=== PATIENT | female | born 1935 | race Caucasian/White ===

== ENCOUNTER 2019-01-25 09:55 | Outpatient (CLI) | payer MEDICARE ==
--- NOTE | 2019-01-25 10:14 | RAD ---
XR Chest Pa Lat @ POB History: Dyspnea Comparison: Chest radiograph 2012 Findings: Lungs are clear. No pneumothorax. No effusion. Severe degenerative disease left glenohumera l joint. No acute osseous abnormality. Impression: No acute intrathoracic abnormality.
== END 2019-01-25 09:56 | disposition home or self-care (01) ==
LOC: RAD 09:55
PROVIDERS: ATTEND Internal Medicine Pulmonary Disease
DX: R06.00 Dyspnea, unspecified (principal)
CPT/HCPCS: 71046

== ENCOUNTER 2019-04-12 08:48 | Outpatient (CLI) | payer MEDICARE ==
--- NOTE | 2019-04-12 11:53 | MRI ---
MRI LUMBAR SPINE WITHOUT CONTRAST: Date: 04/12/19 INDICATION: Spinal stenosis. Low back pain. FINDINGS: Lumbar vertebra maintain height. Degenerative disc changes are seen at all levels. No evidence of sanna tebral body edema. At T12-L1, mild diffuse disc bulge flattens the anterior thecal sac. No significant central canal or foraminal stenosis. At L1-2, slight posterolisthesis with posterior disc bulge flattening the thecal sac. Mild facet hype rtrophy. No significant central canal or foraminal stenosis. At L2-3, slight posterolisthesis. Diffuse disc bulge. Facet hypertrophy. There is also posterior epid ural fat which compresses the thecal sac. These changes result in mild to moderate central canal sten osis. Bilateral foraminal stenosis secondary to disc bulge and facet hypertrophy. Foraminal stenosis is slightly more pronounced on the right due to asymmetric disc. At L3-4, mild diffuse disc bulge. Moderate facet hypertrophy. Mild central canal stenosis. At L4-5, mild anterolisthesis. Diffuse disc bulge. Prominent facet hypertrophy. Moderate central rosa isela l stenosis. Left foraminal stenosis secondary to asymmetric disc and facet hypertrophy. At L5-S1, diffuse disc bulge. Prompt facet hypertrophy. No significant central canal stenosis; howeve r, bilateral foraminal stenosis is present due to disc and facet hypertrophy encroaching into both fo ramina. There is a disc osteophyte complex projecting laterally to the left. IMPRESSION: Degenerative disc changes at all levels of the lumbar spine as described above. Central canal stenosi s most pronounced at L2-3 and L4-5 as described above. POS: OFF
== END 2019-04-12 08:49 | disposition home or self-care (01) ==
LOC: SCSMRI 08:48
PROVIDERS: ATTEND Orthopaedic Surgery
DX: M48.061 Spinal stenosis, lumbar region without neurogenic claudication (principal); M48.07 Spinal stenosis, lumbosacral region; M51.36 Other intervertebral disc degeneration, lumbar region
CPT/HCPCS: 72148

== ENCOUNTER 2020-01-10 09:40 | Outpatient (CLI) | payer MEDICARE, OTHER ==
[2020-01-10 14:18] LABS: INR-International Normal Ratio 1.1; PTT 29.7 sec (22.9-36.1); Prothrombin Time 14.3 sec (12.0-14.7)
[2020-01-10 16:17] LABS: Hemoglobin 10.8 g/dL (12.0-16.0); Mean Corpuscular HGB CONC 33.7 g/dL (32.0-36.0); Mean Corpuscular Volume 91.9 fL (78.0-98.0); Mean Platelet Volume 7.3 fL (7.4-10.4); Platelet Count 309 thou/uL (130-400); RBC Distribution Width 11.8 % (11.5-14.5); Red Blood Cell (RBC) Count 3.48 mill/uL (4.20-5.40); White Blood Cell (WBC) Count 6.6 thou/uL (4.8-10.8)
[2020-01-11 10:31] LABS: Anion Gap 15 mmol/L (10-20); BUN (Urea Nitrogen) 19 mg/dL (9.8-20.1); Calc. Creatinine Clearance 0 mL/min (70-130); Calcium 9.6 mg/dL (7.8-10.44); Carbon Dioxide 22 mmol/L (23-31); Chloride 98 mmol/L (98-107); Estimated GFR-MDRD 61; Glucose 98 mg/dL (83-110); Potassium 4.6 mmol/L (3.5-5.1); Sodium 130 mmol/L (136-145)
[2020-01-11 12:44] LABS: SARS-CoV-2 MS2 Positive; SARS-CoV-2 N Gene Negative; SARS-CoV-2 S Gene Negative; SARS-CoV-2 orf1ab Negative
== END 2020-01-10 09:41 | disposition home or self-care (01) ==
LOC: LABBT 09:40
PROVIDERS: ATTEND Surgery
DX: Z01.818 Encounter for other preprocedural examination (principal); Z11.59 Encounter for screening for other viral diseases; M54.16 Radiculopathy, lumbar region; M48.061 Spinal stenosis, lumbar region without neurogenic claudication
CPT/HCPCS: 80048; 85027; 85610; 85730; 93005; U0003; 87635; 93010

== ENCOUNTER 2020-01-12 05:48 | Day surgery (SDC) | payer MEDICARE ==
[2020-01-09 10:27] VITALS: BMI 27.0
[2020-01-12] MEDS ORDERED: Thrombin 5000 UNITS/5 ML VIAL ONE (06:32)
[2020-01-12] MEDS ORDERED: Rocuronium Bromide 50 MG/5 ML VIAL ONE (07:26)
[2020-01-12] MEDS ORDERED: Fentanyl 100 MCG/2 ML VIAL ONE ×4 (07:26→11:38)
[2020-01-12] MEDS ORDERED: PROPOFOL 20 ML ONE (07:26)
[2020-01-12] MEDS ORDERED: Lidocaine 1% PF 5 ML VIAL ONE ×2 (07:26→15:37)
[2020-01-12] MEDS ORDERED: SUGAMMADEX SODIUM 500 MG/5 ML VIAL ONE (10:36)
[2020-01-12] MEDS ORDERED: SUGAMMADEX SODIUM 200 MG/2 ML VIAL ONE (10:36)
[2020-01-12] MEDS ORDERED: HYDROmorphone 2 MG/ML VIAL SLOW IVP PRN (10:39)
[2020-01-12] MEDS ORDERED: Promethazine HCl 25 MG/ML VIAL SLOW IVP PRN (10:39)
[2020-01-12] MEDS ORDERED: PACU-Morphine 4MG/ML VIAL SLOW IVP PRN (10:39)
[2020-01-12] MEDS ORDERED: Morphine Sulfate 2 MG/ML SYRINGE SLOW IVP PRN (10:39)
[2020-01-12] MEDS ORDERED: Ondansetron HCl/PF 4 MG/2 ML Vial IVP PRN (10:39)
[2020-01-12] MEDS ORDERED: Promethazine HCl 25 MG/ML VIAL IM PRN (10:39)
[2020-01-12] MEDS ORDERED: Ondansetron PF 4 MG/2 ML Vial IVP PRN (11:01)
[2020-01-12] MEDS ORDERED: Mag-Al 1200 mg/1200 mg/30 ML UDCUP PO PRN (11:01)
[2020-01-12] MEDS ORDERED: Morphine 2 MG/ML SYRINGE SLOW IVP PRN (11:01)
[2020-01-12] MEDS ORDERED: Fleet Enema 133 ML BOT PR PRN (11:01)
[2020-01-12] MEDS ORDERED: Bisacodyl 10 MG SUPP PR PRN (11:01)
[2020-01-12] MEDS ORDERED: Albuterol Sulfate 1.25 MG/3 ML NEB NEB PRN (11:03)
--- NOTE | 2020-01-12 12:58 | OP ---
DATE OF PROCEDURE: 01/12/2020 LOCATION: OR 12. COACH DRIVER: Dee Ludwig PA-C PREPROCEDURE DIAGNOSIS: Multilevel lumbar stenosis with low back and leg pain. POSTPROCEDURE DIAGNOSIS: Multilevel lumbar stenosis with low back and leg pain. PROCEDURES PERFORMED: L1, L2, L3, L4, L5, and S1 laminectomies, partial facetectomies, and foraminotomies. DESCRIPTION OF PROCEDURE: After informed consent was obtained from the patient, the patient was brought to the OR. Proper patient, pause, and identification were carried out. She was placed under excellent general endotracheal anesthesia and positioned prone on the OR table. A linear fuad was drawn over the L1 through S1 segments. This region was sterilely cleansed, prepared and draped. Proper patient, pause, and identification were carried out. The wound was then opened with a combination of sharp, monopolar, and blunt dissection. The L1, L2, L3, L4, L5, and S1 dorsal spines and lamina were exposed. Localization film confirmed our area of interest. We then performed L1, L2, L3, L4, L5, and S1 laminectomies, partial facetectomies, and foraminotomies with excellent decompression of common dural tube and nerve roots. Copious irrigation occurred throughout as did maximizing hemostasis. The wound was then closed in anatomic layers following sprinkling of vancomycin powder. The patient emerged from anesthesia. Job ID: [id number]
[2020-01-12] MEDS ORDERED: Ondansetron PF 4 MG/2 ML Vial ONE (15:37)
[2020-01-12] MEDS ORDERED: Ketorolac Tromethamine 30 MG/ML VIAL ONE (15:37)
[2020-01-12] MEDS ORDERED: PROPOFOL 200 MG/20 ML VIAL ONE (15:37)
[2020-01-12] MEDS ORDERED: Vecuronium 10 MG VIAL ONE (15:37)
[2020-01-12] MEDS ORDERED: Esmolol 100 MG/10 ML VIAL ONE (15:37)
[2020-01-12] MEDS ORDERED: EPHEDRINE 25 MG/5 ML SYRINGE ONE (15:37)
[2020-01-12] MEDS ORDERED: Rocuronium Bromide 10 MG/ML (10ML VIAL) ONE (15:37)
[2020-01-12] MEDS: hydrALAZINE 25 MG TAB PO SCH ×2 (16:24→21:36)
[2020-01-12] MEDS: CEFAZOLIN 2 GM in Premix Bag 1 BAG IVPB SCH ×2 (16:25→23:34)
[2020-01-12] MEDS: HYDROcodone/Acetaminophen 7.5/325 mg Tablet PO PRN ×2 (16:25→23:35)
[2020-01-12] MEDS: Sodium Chloride 0.9% 1,000 ML IV SCH (16:27)
--- NOTE | 2020-01-12 18:06 | EKG ---
Test Reason : PREOP Blood Pressure : / mmHG Vent. Rate : 066 BPM Atrial Rate : 078 BPM P-R Int : 000 ms QRS Dur : 100 ms QT Int : 414 ms P-R-T Axes : 000 041 009 degrees QTc Int : 434 ms Atrial fibrillation Abnormal ECG When compared with ECG of 29-JUL-2011 14:08, Atrial fibrillation has replaced Sinus rhythm Confirmed by DR. Sierra MATHUR ([id number]) on 01/12/2020 6:05:38 PM Referred By: KELSEY DICKSON Confirmed By:DR. Sierra MATHUR
[2020-01-12] MEDS: Gabapentin 300 MG CAP PO SCH (21:34)
[2020-01-12] MEDS: Nebivolol HCl 5 MG TAB PO SCH (21:35)
[2020-01-12] MEDS: Amlodipine 5 MG TAB PO SCH (21:35)
[2020-01-12] MEDS: Calcium Carbonate 600 MG + Vit D TAB PO SCH (21:35)
[2020-01-12] MEDS: Montelukast Sodium 10 mg Tablet PO SCH (21:36)
[2020-01-12] MEDS: cycloSPORINE 0.05% Ophthalmic Droperette EA EYE SCH (23:34)
[2020-01-13] MEDS: Sodium Chloride 0.9% 1,000 ML IV SCH ×2 (02:31→18:54)
[2020-01-13 05:49] LABS: Anion Gap 8 mmol/L (10-20); BUN (Urea Nitrogen) 16 mg/dL (9.8-20.1); Calc. Creatinine Clearance 52 mL/min (70-130); Calcium 8.6 mg/dL (7.8-10.44); Carbon Dioxide 28 mmol/L (23-31); Chloride 95 mmol/L (98-107); Estimated GFR-MDRD 57; Glucose 111 mg/dL (83-110); Potassium 3.9 mmol/L (3.5-5.1); Sodium 127 mmol/L (136-145)
[2020-01-13] MEDS: Gabapentin 300 MG CAP PO SCH ×2 (08:55→21:04)
[2020-01-13] MEDS: HYDROcodone/Acetaminophen 7.5/325 mg Tablet PO PRN (08:55)
[2020-01-13] MEDS: Multivitamin W/ Minerals 1 TAB PO SCH (08:55)
[2020-01-13] MEDS: Amlodipine 5 MG TAB PO SCH ×2 (12:29→21:58)
[2020-01-13] MEDS: Hydrochlorothiazide 25 MG TAB PO SCH (12:30)
[2020-01-13] MEDS: Losartan 25 MG TAB PO SCH (12:30)
[2020-01-13] MEDS: Nebivolol HCl 5 MG TAB PO SCH ×2 (12:30→21:59)
[2020-01-13] MEDS: hydrALAZINE 25 MG TAB PO SCH ×3 (12:30→21:58)
--- NOTE | 2020-01-13 13:05 | PRG ---
DATE OF SERVICE: 01/13/2020 Ms. Jaime is postoperative day 1 from L1 to S1 laminectomy. She is doing well with resolution in her leg pain. She looks frankly marvelous this morning with excellent strength in her lower extremities. We will remove the Garcia catheter and should be fine for inpatient rehab as early as today. Job ID: [id number]
[2020-01-13] MEDS: cycloSPORINE 0.05% Ophthalmic Droperette EA EYE SCH ×2 (16:17→21:54)
[2020-01-13] MEDS: Acetaminophen 325 MG TAB PO PRN (18:37)
[2020-01-13] MEDS: Montelukast Sodium 10 mg Tablet PO SCH (21:04)
[2020-01-13] MEDS: Calcium Carbonate 600 MG + Vit D TAB PO SCH (21:04)
[2020-01-14] MEDS: Sodium Chloride 0.9% 1,000 ML IV SCH ×2 (05:46→17:34)
[2020-01-14] MEDS: Amlodipine 5 MG TAB PO SCH ×2 (08:54→20:13)
[2020-01-14] MEDS: Hydrochlorothiazide 25 MG TAB PO SCH (08:54)
[2020-01-14] MEDS: hydrALAZINE 25 MG TAB PO SCH ×3 (08:54→20:14)
[2020-01-14] MEDS: Nebivolol HCl 5 MG TAB PO SCH ×2 (08:55→20:15)
[2020-01-14] MEDS: Losartan 25 MG TAB PO SCH (08:55)
[2020-01-14] MEDS: Acetaminophen/Codeine 30-300mg Tablet PO PRN ×3 (08:59→17:50)
[2020-01-14] MEDS: Gabapentin 300 MG CAP PO SCH ×2 (09:00→20:14)
[2020-01-14] MEDS: Multivitamin W/ Minerals 1 TAB PO SCH (09:00)
[2020-01-14] MEDS: cycloSPORINE 0.05% Ophthalmic Droperette EA EYE SCH ×2 (09:00→20:15)
[2020-01-14] MEDS ORDERED: Sodium Chloride 0.9% 10 ML ONE (09:06)
--- NOTE | 2020-01-14 11:07 | PRG ---
DATE OF SERVICE: 01/14/2020 Ms. Jaime has [employer] insurance, which is unfortunate because they are extremely difficult to work with when trying to get inpatient rehab for needed. This is per my opinion and our Social Work opinion. Nevertheless, I have let the patient know that we will continue to try and work in this regard as its my opinion that she would benefit from it. If she continues to do well [employer] does not help us, we will likely have to plan for home health. Job ID: [id number]
[2020-01-14] MEDS: Calcium Carbonate 600 MG + Vit D TAB PO SCH (20:14)
[2020-01-14] MEDS: Montelukast Sodium 10 mg Tablet PO SCH (20:15)
[2020-01-14] MEDS: Docusate 100 MG CAP PO PRN (22:15)
[2020-01-15] MEDS: Sodium Chloride 0.9% 1,000 ML IV SCH ×2 (06:28→20:15)
[2020-01-15] MEDS: Acetaminophen/Codeine 30-300mg Tablet PO PRN ×5 (06:33→22:29)
[2020-01-15] MEDS: hydrALAZINE 25 MG TAB PO SCH ×3 (08:49→21:25)
[2020-01-15] MEDS: Nebivolol HCl 5 MG TAB PO SCH ×2 (08:49→21:26)
[2020-01-15] MEDS: Hydrochlorothiazide 25 MG TAB PO SCH (08:49)
[2020-01-15] MEDS: Amlodipine 5 MG TAB PO SCH ×2 (08:49→21:24)
[2020-01-15] MEDS: Losartan 25 MG TAB PO SCH (08:49)
[2020-01-15] MEDS: Multivitamin W/ Minerals 1 TAB PO SCH (08:50)
[2020-01-15] MEDS: Gabapentin 300 MG CAP PO SCH ×2 (08:50→21:25)
[2020-01-15] MEDS: cycloSPORINE 0.05% Ophthalmic Droperette EA EYE SCH ×2 (08:51→21:26)
[2020-01-15] MEDS: Milk Of Magnesia 30 ML UDCUP PO PRN ×2 (08:54→14:12)
[2020-01-15] MEDS: Calcium Carbonate 600 MG + Vit D TAB PO SCH (21:25)
[2020-01-15] MEDS: Montelukast Sodium 10 mg Tablet PO SCH (21:26)
[2020-01-15] MEDS: Docusate 100 MG CAP PO PRN (21:35)
[2020-01-16] MEDS: Acetaminophen/Codeine 30-300mg Tablet PO PRN ×4 (03:52→21:04)
[2020-01-16] MEDS: Hydrochlorothiazide 25 MG TAB PO SCH (09:57)
[2020-01-16] MEDS: Gabapentin 300 MG CAP PO SCH ×2 (09:57→21:03)
[2020-01-16] MEDS: Amlodipine 5 MG TAB PO SCH ×2 (09:57→20:56)
[2020-01-16] MEDS: Multivitamin W/ Minerals 1 TAB PO SCH (09:57)
[2020-01-16] MEDS: Losartan 25 MG TAB PO SCH (09:58)
[2020-01-16] MEDS: Nebivolol HCl 5 MG TAB PO SCH ×2 (09:59→22:53)
[2020-01-16] MEDS: Sodium Chloride 0.9% 1,000 ML IV SCH (10:00)
[2020-01-16] MEDS: cycloSPORINE 0.05% Ophthalmic Droperette EA EYE SCH ×2 (10:28→21:03)
[2020-01-16] MEDS: hydrALAZINE 25 MG TAB PO SCH ×3 (10:28→21:02)
[2020-01-16] MEDS: Montelukast Sodium 10 mg Tablet PO SCH (21:01)
[2020-01-16] MEDS: Calcium Carbonate 600 MG + Vit D TAB PO SCH (21:01)
[2020-01-17] MEDS: Sodium Chloride 0.9% 1,000 ML IV SCH ×2 (01:35→11:06)
[2020-01-17] MEDS: Nebivolol HCl 5 MG TAB PO SCH ×2 (09:45→20:47)
[2020-01-17] MEDS: Acetaminophen 325 MG TAB PO PRN (09:45)
[2020-01-17] MEDS: Multivitamin W/ Minerals 1 TAB PO SCH (09:47)
[2020-01-17] MEDS: Losartan 25 MG TAB PO SCH (09:47)
[2020-01-17] MEDS: hydrALAZINE 25 MG TAB PO SCH ×3 (09:47→20:46)
[2020-01-17] MEDS: Gabapentin 300 MG CAP PO SCH ×2 (09:48→20:47)
[2020-01-17] MEDS: Amlodipine 5 MG TAB PO SCH ×2 (09:48→20:48)
[2020-01-17] MEDS: cycloSPORINE 0.05% Ophthalmic Droperette EA EYE SCH ×2 (09:50→20:46)
[2020-01-17] MEDS: Hydrochlorothiazide 25 MG TAB PO SCH (09:50)
[2020-01-17] MEDS: traMADol HCl 50 MG TAB PO PRN ×2 (11:02→20:47)
[2020-01-17] MEDS: Montelukast Sodium 10 mg Tablet PO SCH (20:48)
[2020-01-17] MEDS: Calcium Carbonate 600 MG + Vit D TAB PO SCH (20:48)
[2020-01-17] MEDS: tiZANidine HCl 4 MG TAB PO PRN (23:36)
[2020-01-18] MEDS: Sodium Chloride 0.9% 1,000 ML IV SCH ×2 (04:25→16:16)
--- NOTE | 2020-01-18 08:28 | PRG ---
DATE OF SERVICE: 01/16/2020 Ms. Jaime is a pleasant 84-year-old female, who is 4 days status post undergoing L1-S1 laminectomies, partial facetectomies, and foraminotomies on January 12, 2020. The patient is doing very well and is currently pending determination of whether or not she will be accepted to inpatient rehab. She states that her pain is well controlled with pain medication postoperatively. She reports significant improvement in her lower extremities compared to before surgery. She has been able to ambulate without difficulty and has had no falls since surgery. Overall, she reports doing very well. We will continue to await rehab placement. Please call for any neurologic changes or other concerns. Job ID: [id number]
--- NOTE | 2020-01-18 09:55 | PRG ---
DATE OF SERVICE: 01/18/2020 Ms. Jaime is 6 days out from her L1-S1 laminectomy, who is essentially waiting on insurance, which for whatever reason is not approved for inpatient rehab. She is now getting to the point where she can likely go home with home health. We will arrange for that. It is disappointing, however, that she has not gotten inpatient rehab. Job ID: [id number]
[2020-01-18] MEDS: Hydrochlorothiazide 25 MG TAB PO SCH (10:58)
[2020-01-18] MEDS: hydrALAZINE 25 MG TAB PO SCH ×3 (10:59→21:36)
[2020-01-18] MEDS: cycloSPORINE 0.05% Ophthalmic Droperette EA EYE SCH ×2 (10:59→21:31)
[2020-01-18] MEDS: Acetaminophen/Codeine 30-300mg Tablet PO PRN (10:59)
[2020-01-18] MEDS: Gabapentin 300 MG CAP PO SCH ×2 (10:59→21:32)
[2020-01-18] MEDS: Losartan 25 MG TAB PO SCH (11:00)
[2020-01-18] MEDS: Multivitamin W/ Minerals 1 TAB PO SCH (11:00)
[2020-01-18] MEDS: Amlodipine 5 MG TAB PO SCH ×2 (11:00→21:35)
[2020-01-18] MEDS: Nebivolol HCl 5 MG TAB PO SCH ×2 (11:00→21:37)
[2020-01-18] MEDS: Mometasone 200 MCG/Formoterol 5 MCG 120 PUFF INHALER INH SCH (19:02)
[2020-01-18] MEDS: Montelukast Sodium 10 mg Tablet PO SCH (21:32)
[2020-01-18] MEDS: Calcium Carbonate 600 MG + Vit D TAB PO SCH (21:35)
[2020-01-18] MEDS: traMADol HCl 50 MG TAB PO PRN (21:41)
[2020-01-18] MEDS: Docusate 100 MG CAP PO PRN (21:45)
[2020-01-18] MEDS: tiZANidine HCl 4 MG TAB PO PRN (21:45)
[2020-01-19] MEDS: Sodium Chloride 0.9% 1,000 ML IV SCH ×2 (02:26→16:12)
[2020-01-19] MEDS: Mometasone 200 MCG/Formoterol 5 MCG 120 PUFF INHALER INH SCH (06:32)
[2020-01-19] MEDS: Hydrochlorothiazide 25 MG TAB PO SCH (08:29)
[2020-01-19] MEDS: Losartan 25 MG TAB PO SCH (08:29)
[2020-01-19] MEDS: Multivitamin W/ Minerals 1 TAB PO SCH (08:30)
[2020-01-19] MEDS: Amlodipine 5 MG TAB PO SCH (08:30)
[2020-01-19] MEDS: Nebivolol HCl 5 MG TAB PO SCH (08:30)
[2020-01-19] MEDS: hydrALAZINE 25 MG TAB PO SCH ×2 (08:30→15:16)
[2020-01-19] MEDS: cycloSPORINE 0.05% Ophthalmic Droperette EA EYE SCH (08:30)
[2020-01-19] MEDS: Gabapentin 300 MG CAP PO SCH (08:31)
[2020-01-19 15:36] VITALS: BP 123/60; TEMP 98.2
== END 2020-01-19 17:50 | disposition home or self-care (01) ==
LOC: SDC 05:48 → SURG B 11:01 → SDC 01-19 17:50
PROVIDERS: ATTEND Surgery
PROC: 01NB0ZZ Release Lumbar Nerve, Open Approach (ICD-10-PCS; principal; 2020-01-12)
DX: M48.061 Spinal stenosis, lumbar region without neurogenic claudication (principal); M54.16 Radiculopathy, lumbar region; Z79.01 Long term (current) use of anticoagulants; Z79.899 Other long term (current) drug therapy; Z88.7 Allergy status to serum and vaccine
CPT/HCPCS: 36415; 76000; 80048; 93005; 93010; J0690; J1885; J2001; J2405; J2704; J3010; J3370

== ENCOUNTER 2020-05-23 07:00 | Outpatient (CLI) | payer MEDICARE, OTHER ==
[2020-05-23 09:47] LABS: Hemoglobin 10.4 g/dL (12.0-16.0); Mean Corpuscular HGB CONC 31.9 G/DL (32.0-36.0); Mean Corpuscular Hemoglobin 28.3 PG (27.0-33.0); Mean Corpuscular Volume 88.8 fl (80.0-100.0); Mean Platelet Volume 9.2 fl (7.4-10.4); Platelet Count 303 10x3/uL (130-400); RBC Distribution Width 16.4 % (11.5-14.5); Red Blood Cell (RBC) Count 3.67 10x6/uL (3.90-5.20)
[2020-05-23 09:58] LABS: INR-International Normal Ratio 1.2; PTT 28.2 sec (22.0-33.0); Prothrombin Time 12.4 sec (9.5-12.1)
[2020-05-23 11:30] LABS: Anion Gap 15 mmol/L (10-20); BUN (Urea Nitrogen) 17 mg/dL (9.8-20.1); Calc. Creatinine Clearance 0 mL/min (70-130); Calcium 9.8 mg/dL (7.8-10.44); Carbon Dioxide 25 mmol/L (23-31); Chloride 101 mmol/L (98-107); Estimated GFR-MDRD 52; Glucose 97 mg/dL (83-110); Potassium 4.2 mmol/L (3.5-5.1); Sodium 137 mmol/L (136-145)
[2020-05-23 20:25] LABS: SARS-CoV-2 MS2 Positive; SARS-CoV-2 N Gene Negative; SARS-CoV-2 S Gene Negative; SARS-CoV-2 by NAA Not Detected (NotDetected); SARS-CoV-2 orf1ab Negative
== END 2020-05-23 07:01 | disposition home or self-care (01) ==
LOC: LABBT 07:00
PROVIDERS: ATTEND Internal Medicine Cardiovascular Disease
DX: Z01.818 Encounter for other preprocedural examination (principal); Z20.828 Contact with and (suspected) exposure to other viral communicable diseases; I48.91 Unspecified atrial fibrillation
CPT/HCPCS: 80048; 85027; 85610; 85730; 93005; U0003; 87635; 93010

== ENCOUNTER 2020-05-28 07:15 | Day surgery (SDC) | payer MEDICARE ==
[2020-05-25 13:42] VITALS: BMI 26.9
[2020-05-28] MEDS ORDERED: PROPOFOL 20 ML ONE (07:59)
--- NOTE | 2020-05-28 08:42 | OP ---
DATE OF PROCEDURE: 05/28/2020 PROCEDURE PERFORMED: External electrical cardioversion. REASON FOR PROCEDURE: Ms. Jaime is an 84-year-old woman with history of persistent atrial fibrillation, poor Multaq tolerance in the past. She has had prior cardioversion in February 2020 with recurrence. Now, she has been loaded with flecainide and she is here for a cardioversion procedure. She has been anticoagulated without fail with apixaban. DESCRIPTION OF PROCEDURE: The patient received propofol by Anesthesia specialist. After adequate level of sedation achieved, a synchronized 100-joule initially failed to cardiovert the patient, but a subsequent 200-joule shock converted the patient back to sinus rhythm. Returned rhythm was about 70 beats per minute. The patient tolerated the procedure well. No complications noted. CONCLUSION: Successful cardioversion. PLAN: Continue monitoring the patient with external monitor, she is already wearing, as well as an EKG. Followup office visit in 3 weeks. Job ID: [id number]
--- NOTE | 2020-05-28 21:05 | EKG ---
Test Reason : POST CRDIOVERSION Blood Pressure : / mmHG Vent. Rate : 068 BPM Atrial Rate : 068 BPM P-R Int : 210 ms QRS Dur : 108 ms QT Int : 452 ms P-R-T Axes : 094 050 031 degrees QTc Int : 480 ms Sinus rhythm with 1st degree A-V block Otherwise normal ECG When compared with ECG of 23-MAY-2020 09:23, (Unconfirmed) Sinus rhythm has replaced Atrial fibrillation Nonspecific T wave abnormality, improved in Inferior leads Nonspecific T wave abnormality no longer evident in Lateral leads Confirmed by Yury TAN ([id number]) on 05/28/2020 9:04:35 PM Referred By: [facility] Confirmed By:Yury TAN
== END 2020-05-28 09:16 | disposition home or self-care (01) ==
LOC: CCL 07:15
PROVIDERS: ATTEND Internal Medicine Cardiovascular Disease
PROC: 5A2204Z Restoration of Cardiac Rhythm, Single (ICD-10-PCS; principal; 2020-05-28)
DX: I48.19 Other persistent atrial fibrillation (principal); I47.1 Supraventricular tachycardia; I10 Essential (primary) hypertension; I27.20 Pulmonary hypertension, unspecified; J45.909 Unspecified asthma, uncomplicated; Z79.01 Long term (current) use of anticoagulants; Z79.899 Other long term (current) drug therapy; Z87.891 Personal history of nicotine dependence
CPT/HCPCS: 92960; 93005; 93010; J2704

== ENCOUNTER 2020-05-30 13:08 | Outpatient (CLI) | payer MEDICARE ==
--- NOTE | 2020-05-30 14:55 | RAD ---
2 view chest: [05/30/2020] Comparison:03/06/2020 HISTORY: Shortness of breath FINDINGS: Stable heart and mediastinal contours. New diffuse increased linear interstitial density. N o pneumothorax. New small bilateral pleural effusions. Mild new pulmonary vascular prominence. There is prominent stable degenerative change of the left shoulder. IMPRESSION: New interstitial prominence and mild pulmonary vascular congestion with new small bilater al pleural effusions. Findings are suspicious for pulmonary edema. Nonspecific infectious pneumonitis cannot be excluded. Follow-up imaging following treatment advised.
== END 2020-05-30 13:09 | disposition home or self-care (01) ==
LOC: BICRAD 13:08
PROVIDERS: ATTEND Internal Medicine Pulmonary Disease
DX: R06.00 Dyspnea, unspecified (principal); J90 Pleural effusion, not elsewhere classified; J84.89 Other specified interstitial pulmonary diseases
CPT/HCPCS: 71046

== ENCOUNTER 2020-06-08 08:53 | Inpatient (IN) | payer MEDICARE ==
--- NOTE | 2020-06-08 09:38 | RAD ---
XR Chest 1 View Portable History: Cough with dyspnea Comparison: Radiograph May 30, 2020 Findings: Mild background lung hyperinflation. No confluent airspace consolidation, pneumothorax or e ffusion. Advanced left glenohumeral degenerative change. No acute osseous abnormality. Impression: No acute intrathoracic abnormality.
[2020-06-08 09:52] LABS: #Eosinphils 0.1 thou/uL (0.0-0.7); #Lymphocytes 1.9 thou/uL (1.20-3.40); #Neutrophils 8.2 thou/uL (1.40-6.50); %Basophils 0.3 % (0.0-1.0); %Eosinophils 1.1 % (0.0-10.0); %Lymphocytes 16.7 % (21.0-51.0); %Neutrophils 72.9 % (42.0-75.0); Hemoglobin 13.1 g/dL (12.0-16.0); Mean Corpuscular Hemoglobin 29.7 pg (27.0-31.0); Mean Corpuscular Volume 89.9 fL (78.0-98.0); Mean Platelet Volume 6.6 fL (7.4-10.4); Platelet Count 492 thou/uL (130-400); White Blood Cell (WBC) Count 11.2 thou/uL (4.8-10.8)
[2020-06-08 10:10] LABS: ALT (SGPT) 11 U/L (8-55); AST (SGOT) 17 U/L (5-34); Albumin 3.3 g/dL (3.4-4.8); Alkaline Phosphatase 61 U/L (40-110); Anion Gap 16 mmol/L (10-20); BUN (Urea Nitrogen) 23 mg/dL (9.8-20.1); Bilirubin, Total 0.4 mg/dL (0.2-1.2); Calc. Creatinine Clearance 0 mL/min (70-130); Calcium 8.9 mg/dL (7.8-10.44); Carbon Dioxide 21 mmol/L (23-31); Chloride 99 mmol/L (98-107); Estimated GFR-MDRD 47; Globulin 4.1 g/dL (2.4-3.5); Glucose 107 mg/dL (83-110); Lipase 28 U/L (8-78); Magnesium 2.1 mg/dL (1.6-2.6); Potassium 4.2 mmol/L (3.5-5.1); Protein, Total 7.4 g/dL (6.0-8.3); Sodium 132 mmol/L (136-145)
[2020-06-08] MEDS ORDERED: Furosemide 20 MG/2 ML VIAL ONE (11:15)
[2020-06-08 11:32] LABS: Bilirubin Negative (Negative); Blood, Urine Negative (Negative); Clarity Clear (Clear); Glucose, Urine (Dipstick) Normal (Negative); Ketone, Urine Negative (Negative); Leukocyte Negative Leu/uL (Negative); Nitrite Negative (Negative); Protein, Urine (Dipstick) Negative (Neg-Trace); Urobilinogen Normal mg/dL (Less than 2)
--- NOTE | 2020-06-08 11:42 | PDOC.HHP ---
Hospitalist HPI - History of Present Illness Hypotension History of Present Illness: PCP: Randee Alvarado The patient is an 84-year-old female with a past medical history significant for persistent atrial fibrillation (on Eliquis), CHF, HTN, pulmonary hypertension and asthma that presents to the emergency department via EMS for the above complaint. The patient reports that over the past 2 days she has had low blood pressure readings. She reports her lowest reading with an SBP in the 70s. She reports that this typically happens when she stands up. However, this morning she was having low readings while she was sitting down. She reports that her highest reading was an SBP in the 90s. Because of her low blood pressure readings, she has not taken any of her blood pressure medications since yesterday morning. She reports heart palpitations, stating that she can feel it when her atrial fibrillation is acting up. She has a history of 2 cardioversions for her persistent atrial fibrillation, most recent was with Dr. Stacy in May 2020. She reports mild chest discomfort and some shortness of breath worse with exertion. She denies any swelling to her lower extremities. She denies cough or wheezing, however, does have a history of asthma. She denies any recent illness or fever. She denies any abdominal pain, nausea, vomiting, diarrhea. She denies any dysuria or hematuria. ED Course: VITAL SIGNS ThuJun 08, 2020 09:13 [facility] BP: 144/86, Pulse: 91, Resp: 20, Temp: 98.0 (Oral), Pain: 0, O2 sat: 100 on (Room Air), Time: 06/08/2020 09:13. VITAL SIGNS ThuJun 08, 2020 10:00 [facility] [place] BP: 106/64, MAP: 78, Pulse: 96, Resp: 15, Pain: 0, O2 sat: 100 on (Room Air), Time: 06/08/2020 10:00. VITAL SIGNS ThuJun 08, 2020 10:30 [facility] [place] BP: 121/74, MAP: 89, Pulse: 85, Resp: 16, Pain: 0, O2 sat: 98 on (Room Air), Time: 06/08/2020 10:30. Medication administration: furosemide injection 10 mg IV Push Acknowledged 10:52 06/08/2020 Hospitalist ROS - Review of Systems All other systems reviewed; all pertinent +/- noted in HPI/Subj - Medication Medications: amLODIPine TABLET : Strength - 10 mg : ORAL Patient Dose: 0.5 tab(s) Oral once a day (in the morning). Breo Ellipta unk dosing. Bystolic TABLET : Strength - 10 mg : ORAL Patient Dose: 5 mg Oral once a day. Citracal plus D TABLET : Strength - 315 mg-200 unit : ORAL Patient Dose: 1 tab(s) Oral once a day. cloNIDine HCl TABLET : Strength - 0.1 mg : ORAL Patient Dose: 0.1 mg Oral 2 times a day. Eliquis TABLET : Strength - 5 mg : ORAL Patient Dose: 5 mg Oral 2 times a day. flecainide TABLET : Strength - 50 mg : ORAL Patient Dose: 1 tab(s) Oral 2 times a day. gabapentin TABLET : Strength - 600 mg : ORAL Patient Dose: 0.5 tab(s) Oral once a day (at bedtime). montelukast TABLET : Strength - 10 mg : ORAL Patient Dose: 1 tab(s) Oral once a day (at bedtime). Premarin oral TABLET : Strength - 0.9 mg : ORAL Patient Dose: 0.625 mg Oral once a day (in the morning). Restasis DROPPERETTE, SINGLE-USE DROP DISPENSER : Strength - 0.05 % : OPHTHALMIC Patient Dose: 2 gtt Eyes Both 2 times a day. Allergies:digoxin, dronedarone (Unconfirmed), Multaq, tiZANidine Hospitalist History - Past Medical History Cardiac: reports: AFIB (Persistent), CHF, HTN Pulmonary: reports: asthma, Other (Pulmonary hypertension) - Past Surgical History Past Surgical History: reports: Other (Ablation for SVT, cardioversion x2 for atrial fibrillation, hysterectomy, colon resection, right hip replacement, lumbar laminectomy) - Family History Family History: reports: diabetes mellitus - Social History Smoking Status: Former smoker (Quit greater than 20 to 30 years ago) Alcohol: reports: None Drugs: reports: none Living Situation: With Family Occupation: Does not work Activity level: independent ambulation - Exam General Appearance: NAD, awake alert. negative: ill appearing Eye: anicteric sclera ENT: normocephalic atraumatic Neck: supple, symmetric, no JVD Heart: no murmur, no gallops, no rubs, normal peripheral pulses, irregular Respiratory: no wheezes, rhonchi Gastrointestinal: soft, non-tender, non-distended, normal bowel sounds, no guarding, no rigidity Extremities: no cyanosis, no edema Skin: no rashes Neurological: no focal deficits Psychiatric: normal affect, A&O x 3 Hospitalist Results - Labs Result Diagrams: 06/08/20 09:27 06/08/20 09: Lab results: WBC 11.2 thou/uL (4.8-10.8) H 06/08/20 09:27 Hgb 13.1 g/dL (12.0-16.0) 06/08/20 09: Hct 39.6 % (36.0-47.0) 06/08/20: MCV 89.9 fL (78.0-98.0) 06/08/20: Plt Count 492 thou/uL (130-400) H 06/08/20 09: Neutrophils % 72.9 % (42.0-75.0) 06/08/20 09: Sodium 132 mmol/L (136-145) L 06/08/20: Potassium 4.2 mmol/L (3.5-5.1) 06/08/20 09: Chloride 99 mmol/L (98-107) 06/08/20 09: Carbon Dioxide 21 mmol/L (23-31) L 06/08/20: BUN 23 mg/dL (9.8-20.1) H 06/08/20 09: Creatinine 1.10 mg/dL (0.6-1.1) 06/08/20: Glucose 107 mg/dL (83-110) 06/08/20: Calcium 8.9 mg/dL (7.8-10.44) 06/08/20 09: Total Bilirubin 0.4 mg/dL (0.2-1.2) 06/08/20: AST 17 U/L (5-34) 06/08/20: ALT 11 U/L (8-55) 06/08/20 09: Alkaline Phosphatase 61 U/L (40-110) 06/08/20 09: Troponin I Less than 0.010 ng/mL (< 0.028) 06/08/20 09: B-Natriuretic Peptide 404.2 pg/mL (0-100) H 06/08/20 09:27 Serum Total Protein 7.4 g/dL (6.0-8.3) 06/08/20 09:27 Albumin 3.3 g/dL (3.4-4.8) L 06/08/20 09:27 Lipase 28 U/L (8-78) 06/08/20 09:27 Urine Ketones Negative mg/dL (Negative) 06/08/20 11:02 Urine Blood Negative (Negative) 06/08/20 11:02 Urine Nitrite Negative (Negative) 06/08/20 11:02 Ur Leukocyte Esterase Negative Johanny/uL (Negative) 06/08/20 11:02 - EKG Interpretation EK lead EKG interpreted by Emergency Department Physician at time of study, 12 lead EKG shows, atrial fibrillation with controlled ventricular response, Rate (beats per minute): 99, with no ectopics, Compared with previous EKG from, 03/06/2020, Similar to old EKG, ST segments normal, T waves, inverted, Leads affected: III, Leads affected: aVf, Ashley normal, Clinical impression:, dysrhythmia - atrial - Radiology Interpretation Chest x-ray Status: report reviewed by me Additional Comment: Impression: No acute intrathoracic abnormality. Hospitalist H&P A/P - Problem (1) Chest pain Code(s): R07.9 - CHEST PAIN, UNSPECIFIED Status: Acute (2) Hypotension Status: Acute (3) CHF (congestive heart failure) Code(s): I50.9 - HEART FAILURE, UNSPECIFIED Status: Chronic (4) Atrial fibrillation, persistent Code(s): I48.19 - OTHER PERSISTENT ATRIAL FIBRILLATION Status: Chronic (5) Hypertension Code(s): I10 - ESSENTIAL (PRIMARY) HYPERTENSION Status: Chronic (6) Pulmonary hypertension Code(s): I27.20 - PULMONARY HYPERTENSION, UNSPECIFIED Status: Chronic (7) Asthma Code(s): J45.909 - UNSPECIFIED ASTHMA, UNCOMPLICATED Status: Chronic - Plan Plan: 84/F with H CHF, A. fib, asthma presents for hypotension and chest pain. Admit the patient to telemetry floor, observation status. Expected length of stay less than 2 midnights. Presented NL BP, HR, RR, SPO2, afebrile. EKG A. fib rate controlled CXR negative for acute process Troponin negative, DD 0.30, BNP 404, TSH 131, mag 2.1 CBC unremarkable #Chest pain Heart score 4 Trend troponins, check FLP, UA. Give aspirin. Consult cardiology, Dr. Paz. #Hypotension Presented normotensive. Reported history of sensitivity to diuretics. Given low dose Lasix 10 mg IVP in ER. Patient has not taken her home medications for past 2 days. Currently patient's BP is stable. We will restart home dose of Bystolic. #CHF Presented BNP 404, on 03/15 BNP 278 Given Lasix 10 mg IVP in ER. SLAVA's, daily weights, fluid restriction. Order echocardiogram. Consult cardiology. Restart home dose of Bystolic. Further diuretic therapy dependent upon patient response. #Atrial fibrillation, persistent Presented rate controlled. Restart patient's home dose of Bystolic, flecainide and Eliquis. #Hypertension Chronic. Hold home dose of amlodipine for now. Continue monitor BP. #Pulmonary hypertension Chronic. Followed by Dr. Cook. #Asthma Chronic, appears stable Takes unknown dose of Breo Ellipta at home. We will start Dulera scheduled. No pharmacological DVT prophylaxis. No GI prophylaxis. Full code. Medical decision maker is her daughter, Lexis Watson at [phone]. Discussed the case with Dr. Johns.
[2020-06-08] MEDS ORDERED: Nitroglycerin 0.4 MG TAB (25 Tab Bottle) SL PRN (11:55)
[2020-06-08] MEDS ORDERED: Apixaban 5 MG TAB PO SCH (12:45)
[2020-06-08] MEDS ORDERED: Nebivolol HCl 5 MG TAB PO SCH (12:45)
[2020-06-08] MEDS ORDERED: Flecainide 50 MG TAB PO SCH (12:45)
[2020-06-08 14:04] LABS: Troponin I Less than 0.010 ng/mL (< 0.028)
[2020-06-08 15:38] VITALS: BMI 25.4
[2020-06-08 16:17] LABS: Troponin I Less than 0.010 ng/mL (< 0.028)
[2020-06-08] MEDS ORDERED: Sodium Chloride 0.9% 500 ML IV SCH (17:00)
[2020-06-08] MEDS ORDERED: Digoxin 0.25 MG TAB PO SCH (18:00)
[2020-06-08] MEDS: Mometasone 100 MCG/Formoterol 5 MCG 120 PUFF INHALER INH SCH (19:39)
[2020-06-08 22:19] LABS: SARS-CoV-2 MS2 Positive; SARS-CoV-2 N Gene Negative; SARS-CoV-2 S Gene Negative; SARS-CoV-2 by NAA Not Detected (NotDetected); SARS-CoV-2 orf1ab Negative
[2020-06-09 05:08] LABS: #Eosinphils 0.1 thou/uL (0.0-0.7); #Lymphocytes 1.2 thou/uL (1.20-3.40); #Monocytes 0.8 thou/uL (0.11-0.59); #Neutrophils 9.3 thou/uL (1.40-6.50); %Basophils 0.3 % (0.0-1.0); %Eosinophils 0.8 % (0.0-10.0); %Lymphocytes 10.2 % (21.0-51.0); %Monocytes 6.6 % (0.0-10.0); %Neutrophils 82.1 % (42.0-75.0); Hemoglobin 13.7 g/dL (12.0-16.0); Mean Corpuscular HGB CONC 33.2 g/dL (32.0-36.0); Mean Corpuscular Hemoglobin 29.7 pg (27.0-31.0); Mean Corpuscular Volume 89.3 fL (78.0-98.0); Mean Platelet Volume 6.7 fL (7.4-10.4); Platelet Count 496 thou/uL (130-400); White Blood Cell (WBC) Count 11.4 thou/uL (4.8-10.8)
[2020-06-09 05:29] LABS: Anion Gap 12 mmol/L (10-20); BUN (Urea Nitrogen) 21 mg/dL (9.8-20.1); Calc. Creatinine Clearance 45 mL/min (70-130); Calcium 9.2 mg/dL (7.8-10.44); Carbon Dioxide 28 mmol/L (23-31); Cardiac Risk 2.1 (Less than 4.5); Chloride 99 mmol/L (98-107); Cholesterol 157 mg/dl (< 200 Desired); Estimated GFR-MDRD 53; Glucose 122 mg/dL (83-110); HDL Cholesterol 74 mg/dL (>60 Neg Risk); LDL Cholesterol, Calculated 67 mg/dL; Potassium 4.3 mmol/L (3.5-5.1); Sodium 135 mmol/L (136-145); Triglycerides 81 mg/dL (Less than 150)
[2020-06-09] MEDS: Mometasone 100 MCG/Formoterol 5 MCG 120 PUFF INHALER INH SCH ×2 (06:42→18:22)
[2020-06-09] MEDS ORDERED: Aspirin Chewable 81 MG TAB PO SCH (09:00)
[2020-06-09] MEDS ORDERED: Diltiazem HCl SR 60 mg Capsule PO SCH (09:00)
--- NOTE | 2020-06-09 09:05 | CON ---
DATE OF CONSULTATION: 06/08/2020 REASON FOR CONSULTATION: Hypotension. HISTORY OF PRESENT ILLNESS: Ms. Jaime is a very pleasant 84-year-old woman, whom I have seen and evaluated in the past. She has a struggle with hypotension recently. She recently had her hydrochlorothiazide discontinued. She is on several medications for her hypertension. She has had much labile blood pressure. She also underwent recent cardioversion that did not last for more than a week. She was on flecainide that has now been discontinued. PAST MEDICAL HISTORY: Paroxysmal atrial fibrillation, PACs, varicose veins, hypertension, tricuspid regurgitation, pulmonary hypertension, spinal stenosis, monoclonal gammopathy, asthma. HOME MEDICATIONS: Include; 1. Olmesartan 20 mg daily. 2. Gabapentin 300 b.i.d. 3. Eliquis 5 mg daily. 4. Citracal. 5. Restasis. 6. Clonidine as needed. 7. ProAir. 8. Multivitamin. 9. Stool softener. 10. Premarin. 11. Breo. 12. Bystolic. 13. Amlodipine. 14. Flonase. PAST SURGICAL HISTORY: Previous angiogram dated 12/22 with no significant coronary artery disease or renal artery stenosis, done at [facility]; hysterectomy; colon resection; hip replacement; PVI; tonsillectomy; appendectomy. REVIEW OF SYSTEMS: A 10-point review of systems is reviewed and is as above, otherwise negative. PHYSICAL EXAMINATION: GENERAL: Patient is a pleasant female, who is in no acute distress. The patient appears their stated age. VITAL SIGNS: Blood pressure 108/90, pulse 80, respirations 20. NEUROLOGIC: The patient is alert and oriented x3 with no focal neurologic deficits. HEENT: Sclerae without icterus. Mouth has moist mucous membranes with normal pallor. NECK: No JVD. Carotid upstroke brisk. No bruits bilaterally. LUNGS: Clear to auscultation with unlabored respirations. BACK: No scoliosis or kyphosis. CARDIAC: Irregularly irregular. ABDOMEN: Soft, nontender, nondistended. No peritoneal signs present. No hepatosplenomegaly. No abnormal striae. EXTREMITIES: 2+ femoral and 2+ dorsalis pedis pulses. No cyanosis, clubbing, or edema. SKIN: No gross abnormalities. PERTINENT LABORATORY DATA: Hemoglobin 13.1, hematocrit 39. Creatinine 1.1. Echo with Doppler dated 09/2019 with normal LVEF. Stress-rest myocardial perfusion study dated 05/03/2020, LVEF 59% with no significant ischemia present. IMPRESSION: 1. Hypotension. 2. Atrial fibrillation. RECOMMENDATIONS: I will need to revisit her outpatient medical regime. At this point, we will hold off on olmesartan, Norvasc, and Bystolic. We will add digoxin p.o. for better rate control. We will add low-dose Cardizem, which will likely cause less effects for blood pressure once her blood pressure is more stable. We will give her IV bolus of fluid. Her current blood pressure once she got from the ER to the floor is 80 systolic. Job ID: [id number]
[2020-06-09] MEDS ORDERED: Digoxin 0.5 MG/2 ML AMP SLOW IVP SCH ×2 (12:30→19:00)
[2020-06-09] MEDS ORDERED: Apixaban 5 MG TAB PO SCH (13:15)
--- NOTE | 2020-06-09 14:11 | PDOC.CPN ---
- Subjective Date: 06/09/20 Time: 12:30 Interval history: Still a little dizzy at times. Pulse rate still rapid. No CP/SOB. - Review of Systems General: denies: fever/chills, weight/appetite/sleep changes, night sweats, fatigue Respiratory: denies: cough, congestion, shortness of breath, exercise intolerance Cardiovascular: denies: chest pain, palpitation, edema, paroxysmal nocturnal dyspnea, orthopnea Gastrointestinal: denies: nausea, vomiting, diarrhea, constipation, abd pain, GI bleeding Musculoskeletal: denies: pain, tenderness, stiffness, swelling, arthritis/arthralgias Neurological: denies: numbness, syncope, seizure, weakness - Objective Allergies/Adverse Reactions: Allergies Allergy/AdvReac Type Severity Reaction Status Date / Time digoxin Allergy Severe Diarrhea Verified 05/25/20 13:43 dronedarone [From Multaq] Allergy Severe Verified 05/25/20 13:43 tizanidine Allergy Intermediate Verified 05/25/20 13:43 Visit Medications: Current Medications Apixaban (Apixaban 5 Mg Tab) 5 mg PO BID [facility] Apixaban (Apixaban 5 Mg Tab) 5 mg PO NOW [facility] Stop: 06/09/20 15:15 Last Admin: 06/09/20 13:26 Dose: 5 mg Documented by: Digoxin (Digoxin 0.5 Mg/2 Ml Amp) 0.25 mg SLOW IVP NOW [facility] Stop: 06/09/20 14:30 Last Admin: 06/09/20 13:26 Dose: 0.25 mg Documented by: Digoxin (Digoxin 0.5 Mg/2 Ml Amp) 0.125 mg SLOW IVP 1900 [facility] Stop: 06/09/20 21:00 Digoxin (Digoxin 0.125 Mg Tab) 0.125 mg PO DAILY [facility] Diltiazem HCl (Diltiazem Hcl 30 Mg Tablet) 30 mg PO 0300,0900,1500,2100 [facility] Last Admin: 06/09/20 09:51 Dose: 30 mg Documented by: Mometasone Furoate/Formoterol Fumar (Mometasone 100 Mcg/Formoterol 5 Mcg 120 Puff Inhaler) 2 puff INH BID-RT [facility] Last Admin: 06/09/20 06:42 Dose: 2 puff Documented by: Nitroglycerin (Nitroglycerin 0.4 Mg Tab (25 Tab Bottle)) 0.4 mg SL Q5MIN PRN PRN Reason: Chest Pain Vital Signs & Weight: Vital Signs Temp Pulse Pulse Pulse Pulse Resp BP 06/09/20 13:26 116 H 06/09/20 11:58 97.5 F L 116 H 18 06/09/20 11:10 120 H 144 H 150 H 130/70 06/09/20 08:00 97.7 F 111 H 20 06/09/20 04:00 97.4 F L 86 18 BP BP BP Pulse Ox 06/09/20 13:26 06/09/20 11:58 116/96 H 97 06/09/20 11:10 112/81 06/09/20 08:00 127/80 98 06/09/20 04:00 147/97 H 98 Weight 149 lb 12.8 oz - Physical Exam General: alert & oriented x3, appears well, no apparent distress HEENT: mucus membranes moist Neck: supple neck Cardiac: other (IRR, rapid) Lungs: no wheeze, rales, rhonchi, decreased breath sounds Neuro: grossly intact Abdomen: soft, non-tender Extremities: no edema Skin: clear Musculoskeletal: no pain - Labs Result Diagrams: 06/09/20 04:45 06/10/20 04:39 Troponin/CKMB Troponin I Less than 0.010 ng/mL (< 0.028) 06/08/20 15:22 - Assessment/Plan Assessment/Plan: 1. Hypotension 2. Persistent AFib s/p failed cardioversions 3. Pulmonary HTN 4. Hx hyponatremia on diuretics Patient on low dose cardizem, but pulse still rapid. Digoxin was ordered and t hen cancelled yesterday as she thinks she had a bad reaction to it before. Cannot exactly remember side effect or if it was a drug-drug interaction creating the side effect. Denies any true allergic reaction. Agrees to trial one dose and we can discontinue if adverse reaction. Also she needs steroids resumed. Will resume Eliquis. 06/08/2020 Agree with the above. Pt has failed CV recently. Recommend rate control and ACT.
[2020-06-09] MEDS ORDERED: predniSONE 20 MG TAB PO SCH (14:45)
--- NOTE | 2020-06-09 18:08 | PDOC.HOSPP ---
- Subjective Encounter Date: 06/09/20 Encounter Time: 13:00 Subjective: Patient seen for follow-up regarding labile hypertension. She denies chest pain or shortness of breath. Feels better today. - Objective Vital Signs & Weight: Vital Signs (12 hours) Temp Pulse Pulse Pulse Pulse Resp BP 06/09/20 16:00 91 06/09/20 15:53 97.4 F L 81 18 06/09/20 13:26 116 H 06/09/20 11:58 97.5 F L 116 H 18 06/09/20 11:10 120 H 144 H 150 H 130/70 06/09/20 08:00 97.7 F 111 H 20 BP BP BP BP BP Pulse Ox 06/09/20 16:00 133/87 130/99 H 149/79 H 06/09/20 15:53 129/64 98 06/09/20 13:26 06/09/20 11:58 116/96 H 97 06/09/20 11:10 112/81 06/09/20 08:00 127/80 98 Weight Weight 149 lb 12.8 oz I&O: 06/08/20 06/09/20 06/10/20 06:59 06:59 06:59 Intake Total 540 659 Output Total 600 Balance -60 659 Result Diagrams: 06/09/20 04:45 06/09/20 04:45 Additional Labs: I reviewed patient's labs and MAR EKG Reviewed by me: Yes (Atrial fibrillation on telemetry) Hospitalist ROS - Review of Systems Cardiovascular: denies: chest pain, palpitations, orthopnea, paroxysmal noc. dyspnea, edema, light headedness Gastrointestinal: denies: nausea, vomiting, abdominal pain, diarrhea, constipation, melena, hematochezia - Medication Medications: Active Medications Generic Name Dose Route Start Last Admin Trade Name Freq PRN Reason Stop Dose Admin Diltiazem HCl 30 mg 06/09/20 09:00 06/09/20 15:19 Diltiazem Hcl 30 Mg Tablet PO 30 mg 0300,0900,1500,2100 JOE Administration Mometasone Furoate/Formoterol Fumar 2 puff 06/08/20 18:30 06/09/20 06:42 Mometasone 100 Mcg/Formoterol 5 Mcg 120 Puff Inhaler INH 2 puff BID-RT JOE Administration - Exam General Appearance: awake alert Eye: anicteric sclera ENT: moist mucosa Neck: supple Heart: no rubs, irregular Respiratory: CTAB Gastrointestinal: soft, non-tender Skin: no rashes Psychiatric: normal affect, normal behavior Hosp A/P - Plan -Assessment (1) labile hypertension Status: Acute (2) Asthma Code(s): J45.909 - UNSPECIFIED ASTHMA, UNCOMPLICATED Status: Chronic (3) CHF (congestive heart failure) Code(s): I50.9 - HEART FAILURE, UNSPECIFIED Status: Chronic (4) Atrial fibrillation, persistent Code(s): I48.19 - OTHER PERSISTENT ATRIAL FIBRILLATION Status: Chronic (5) Hypertension Code(s): I10 - ESSENTIAL (PRIMARY) HYPERTENSION Status: Chronic (6) Pulmonary hypertension Code(s): I27.20 - PULMONARY HYPERTENSION, UNSPECIFIED Status: Chronic (7) Chest pain Code(s): R07.9 - CHEST PAIN, UNSPECIFIED Status: Resolved - Plan Patient denies any chest pain today. Appreciate cardiology service input. Titrate antihypertensives. Patient denies any chest pain, discontinue aspirin. Bystolic, olmesartan and Norvasc have been discontinued. Patient has been started on Procardia. 2D echocardiogram result noted. Continue Eliquis for atrial fibrillation.
[2020-06-09] MEDS: Apixaban 5 MG TAB PO SCH (21:37)
[2020-06-10 05:30] LABS: Anion Gap 12 mmol/L (10-20); BUN (Urea Nitrogen) 23 mg/dL (9.8-20.1); Calc. Creatinine Clearance 52 mL/min (70-130); Calcium 8.6 mg/dL (7.8-10.44); Carbon Dioxide 23 mmol/L (23-31); Chloride 103 mmol/L (98-107); Estimated GFR-MDRD 63; Glucose 128 mg/dL (83-110); Potassium 4.4 mmol/L (3.5-5.1); Sodium 134 mmol/L (136-145)
[2020-06-10] MEDS: Mometasone 100 MCG/Formoterol 5 MCG 120 PUFF INHALER INH SCH ×2 (06:27→18:43)
[2020-06-10] MEDS: Digoxin 0.125 MG TAB PO SCH (08:34)
[2020-06-10] MEDS: predniSONE 20 MG TAB PO SCH (08:34)
[2020-06-10] MEDS: Apixaban 5 MG TAB PO SCH ×2 (08:34→20:54)
--- NOTE | 2020-06-10 10:13 | PDOC.EVN ---
Event Note - Event Note Event Note: I received a communication from Dr. Gina Stanley with [facility] that patient's hospitalization met criteria for inpatient stay. Accordingly, patient's status is being changed to inpatient.
[2020-06-10] MEDS ORDERED: Nebivolol HCl 5 MG TAB PO SCH (11:45)
[2020-06-10] MEDS ORDERED: Fleet Enema 133 ML BOT FS SCH (12:00)
--- NOTE | 2020-06-10 13:10 | PDOC.CPN ---
- Subjective Date: 06/10/20 Time: 11:00 Interval history: No overnight events/complaints. BP elevated this morning, but then dropped back to 130s. - Review of Systems General: denies: fever/chills, weight/appetite/sleep changes, night sweats, fatigue Respiratory: denies: cough, congestion, shortness of breath, exercise intoleranc e Cardiovascular: denies: chest pain, palpitation, edema, paroxysmal nocturnal dyspnea, orthopnea Gastrointestinal: denies: nausea, vomiting, diarrhea, constipation, abd pain, GI bleeding Musculoskeletal: denies: pain, tenderness, stiffness, swelling, arthritis/arthralgias Neurological: denies: numbness, syncope, seizure, weakness - Objective Allergies/Adverse Reactions: Allergies Allergy/AdvReac Type Severity Reaction Status Date / Time digoxin Allergy Severe Diarrhea Verified 05/25/20 13:43 dronedarone [From Multaq] Allergy Severe Verified 05/25/20 13:43 tizanidine Allergy Intermediate Verified 05/25/20 13:43 Visit Medications: Current Medications Apixaban (Apixaban 5 Mg Tab) 5 mg PO BID [facility] Last Admin: 06/10/20 08:34 Dose: 5 mg Documented by: Digoxin (Digoxin 0.125 Mg Tab) 0.125 mg PO DAILY [facility] Last Admin: 06/10/20 08:34 Dose: 0.125 mg Documented by: Diltiazem HCl (Diltiazem Cd 120 Mg Cap) 120 mg PO DAILY [facility] Mometasone Furoate/Formoterol Fumar (Mometasone 100 Mcg/Formoterol 5 Mcg 120 Puf f Inhaler) 2 puff INH BID-RT [facility] Last Admin: 06/10/20 06:27 Dose: 2 puff Documented by: Montelukast Sodium (Montelukast Sodium 10 Mg Tablet) 10 mg PO HS [facility] Nebivolol (Nebivolol Hcl 5 Mg Tab) 5 mg PO DAILY [facility] Nebivolol (Nebivolol Hcl 5 Mg Tab) 5 mg PO NOW [facility] Stop: 06/10/20 13:45 Last Admin: 06/10/20 12:45 Dose: 5 mg Documented by: Nitroglycerin (Nitroglycerin 0.4 Mg Tab (25 Tab Bottle)) 0.4 mg SL Q5MIN PRN PRN Reason: Chest Pain Prednisone (Prednisone 20 Mg Tab) 20 mg PO QA-WM JOE Last Admin: 06/10/20 08:34 Dose: 20 mg Documented by: Sodium Biphosphate/Sodium Phosphate (Fleet Enema 133 Ml Bot) 133 ml FS NOW JOE Stop: 06/10/20 14:00 Vital Signs & Weight: Vital Signs Temp Pulse Pulse Pulse Pulse Resp BP 06/10/20 10:58 140 H 110 H 100 162/90 H 06/10/20 08:34 80 06/10/20 08:31 06/10/20 08:11 97.4 F L 89 17 06/10/20 04:00 97.7 F 72 16 BP BP BP Pulse Ox 06/10/20 10:58 159/95 H 06/10/20 08:34 06/10/20 08:31 134/77 06/10/20 08:11 191/90 H 100 06/10/20 04:00 134/69 97 Weight 151 lb 1.6 oz - Physical Exam General: alert & oriented x3, appears well, no apparent distress HEENT: mucus membranes moist Neck: supple neck Cardiac: other (IRR IRR) Lungs: no wheeze, rales, rhonchi Neuro: grossly intact Abdomen: soft, non-tender Extremities: no edema Skin: clear Musculoskeletal: no pain - Labs Result Diagrams: 06/09/20 04:45 06/10/20 04:39 Troponin/CKMB Troponin I Less than 0.010 ng/mL (< 0.028) 06/08/20 15:22 - Assessment/Plan Assessment/Plan: 1. Hypotension 2. Persistent AFib s/p failed cardioversions 3. Pulmonary HTN 4. Hx hyponatremia on diuretics Will change cardizem to long acting. If BP elevates again, resume Bystolic as pulse rate 80s-90s on monitor. Continue Eliquis. ? Home tomorrow if stable.
--- NOTE | 2020-06-10 13:18 | PDOC.HOSPP ---
- Subjective Encounter Date: 06/10/20 Encounter Time: 07:00 Subjective: Patient seen for follow-up regarding labile hypertension. She reports ambulating in the hallways. Denies chest pain, shortness of breath, fevers or chills. Denies any lightheadedness. - Objective Vital Signs & Weight: Vital Signs (12 hours) Temp Pulse Pulse Pulse Pulse Resp BP 06/10/20 10:58 140 H 110 H 100 162/90 H 06/10/20 08:34 80 06/10/20 08:31 06/10/20 08:11 97.4 F L 89 17 06/10/20 04:00 97.7 F 72 16 BP BP BP Pulse Ox 06/10/20 10:58 159/95 H 06/10/20 08:34 06/10/20 08:31 134/77 06/10/20 08:11 191/90 H 100 06/10/20 04:00 134/69 97 Weight Weight 151 lb 1.6 oz I&O: 06/09/20 06/10/20 06/11/20 06:59 06:59 06:59 Intake Total 540 659 474 Output Total 600 745 Balance -60 -86 474 Result Diagrams: 06/09/20 04:45 06/10/20 04:39 Additional Labs: Labs and MAR reviewed by me EKG Reviewed by me: Yes (Aleks murray on telemetry) Hospitalist ROS - Review of Systems Constitutional: denies: fever, chills, sweats, weakness Cardiovascular: denies: chest pain, palpitations, orthopnea, paroxysmal noc. dyspnea, edema, light headedness Gastrointestinal: denies: nausea, vomiting, abdominal pain, diarrhea, constipation, melena, hematochezia - Medication Medications: Active Medications Generic Name Dose Route Start Last Admin Trade Name Freq PRN Reason Stop Dose Admin Apixaban 5 mg 06/09/20 21:00 06/10/20 08:34 Apixaban 5 Mg Tab PO 5 mg BID JOE Administration Digoxin 0.125 mg 06/10/20 09:00 06/10/20 08:34 Digoxin 0.125 Mg Tab PO 0.125 mg DAILY JOE Administration Mometasone Furoate/Formoterol Fumar 2 puff 06/08/20 18:30 06/10/20 06:27 Mometasone 100 Mcg/Formoterol 5 Mcg 120 Puff Inhaler INH 2 puff BID-RT JOE Administration Nebivolol 5 mg 06/10/20 11:45 06/10/20 12:45 Nebivolol Hcl 5 Mg Tab PO 06/10/20 13:45 5 mg NOW JOE Administration Prednisone 20 mg 06/10/20 08:00 06/10/20 08:34 Prednisone 20 Mg Tab PO 20 mg QAM-WM JOE Administration - Exam General Appearance: awake alert Eye: anicteric sclera ENT: moist mucosa Neck: supple Heart: irregular Respiratory: CTAB Gastrointestinal: soft Extremities: no clubbing Skin: no rashes Musculoskeletal: no muscle wasting Psychiatric: normal affect, normal behavior Hosp A/P - Plan -Assessment (1) labile hypertension Status: Acute (2) Asthma Code(s): J45.909 - UNSPECIFIED ASTHMA, UNCOMPLICATED Status: Chronic (3) CHF (congestive heart failure) Code(s): I50.9 - HEART FAILURE, UNSPECIFIED Status: Chronic (4) Atrial fibrillation, persistent Code(s): I48.19 - OTHER PERSISTENT ATRIAL FIBRILLATION Status: Chronic (5) Hypertension Code(s): I10 - ESSENTIAL (PRIMARY) HYPERTENSION Status: Chronic (6) Pulmonary hypertension Code(s): I27.20 - PULMONARY HYPERTENSION, UNSPECIFIED Status: Chronic (7) Chest pain Code(s): R07.9 - CHEST PAIN, UNSPECIFIED Status: Resolved - Plan Patient has been started on digoxin. Patient is also started on long-acting calcium channel sera. Bystolic, olmesartan and Norvasc have been discontinued. Patient is on Eliquis for atrial fibrillation.
[2020-06-10] MEDS ORDERED: Montelukast Sodium 10 mg Tablet PO SCH (21:00)
[2020-06-11 06:01] LABS: Anion Gap 11 mmol/L (10-20); BUN (Urea Nitrogen) 21 mg/dL (9.8-20.1); Calc. Creatinine Clearance 47 mL/min (70-130); Calcium 8.8 mg/dL (7.8-10.44); Carbon Dioxide 27 mmol/L (23-31); Chloride 104 mmol/L (98-107); Estimated GFR-MDRD 55; Glucose 96 mg/dL (83-110); Sodium 138 mmol/L (136-145)
[2020-06-11] MEDS: Mometasone 100 MCG/Formoterol 5 MCG 120 PUFF INHALER INH SCH (08:06)
[2020-06-11] MEDS ORDERED: Nebivolol HCl 5 MG TAB PO SCH ×2 (09:00)
[2020-06-11] MEDS ORDERED: Amlodipine 5 MG TAB PO SCH (09:00)
[2020-06-11] MEDS: Digoxin 0.125 MG TAB PO SCH (09:24)
[2020-06-11] MEDS: Apixaban 5 MG TAB PO SCH (09:24)
[2020-06-11] MEDS: predniSONE 20 MG TAB PO SCH (09:31)
[2020-06-11 11:39] VITALS: BP 138/73; TEMP 97.9
--- NOTE | 2020-06-11 14:57 | PDOC.DS.DS ---
Provider - Provider Date of Admission: 06/10/20 10:13 Date of Discharge: 06/11/20 Admitting Provider: Iam Johns MD Consultations: Cardiology (Dr. Paz) Primary Care Physician: Randee Alvarado MD Course - Hospital Course Hospital Course: Discharge diagnosis: 1. Labile hypertension 2. Hypotension secondary to antihypertensive use 3. Persistent atrial fibrillation 4. Hyponatremia 5. COVID-19 PCR test negative Hospital course: Patient is a pleasant 84-year-old lady who was admitted to the hospital on June 08, 2020 for labile hypertension. At the time of admission, she was hypotensive. She was also in atrial fibrillation. She was seen by cardiology service. Her medications were adjusted. Bystolic dose was increased to 10 mg daily. Olmesartan and Norvasc were discontinued. She has been started on digoxin 0.125 mg daily. She has also been started on Cardizem CD 180 mg daily. Flecainide has been discontinued. She is being discharged home in stable condition. 2D echocardiogram showed left ventricle ejection fraction of 50 to 55%. Diastolic function could not be assessed secondary to atrial fibrillation. She had moderately dilated left atrium, mild to moderate mitral regurgitation, moderately thickened aortic valve and mild to moderate tricuspid regurgitation. Many thanks for allowing me to participate in your patient's care. Please feel free to contact me with any questions or concerns. - Labs Lab Results: 06/09/20 04:45 06/11/20 05:05 Abnormal Lab Results - Last 48 hrs 06/10/20 04:39: Sodium 134 L, BUN 23 H 06/11/20 05:05: BUN 21 H Microbiology - Entire Visit 06/08/20 11:02 Urine voided Urine Culture - Final NO GROWTH AT 48 HOURS - Physical Exam Vitals: Vital Signs (12 hours) Temp Pulse Resp BP Pulse Ox 06/11/20 11:39 97.9 F 81 16 138/73 95 06/11/20 09:25 95 06/11/20 09:24 98 06/11/20 07:48 97.3 F L 80 16 178/85 H 97 06/11/20 03:58 97.5 F L 70 16 140/76 98 Weight Weight 150 lb 11.2 oz Physical Exam: The patient was seen and examined on the day of discharge. Patient denies chest pain or shortness of breath. Vital signs are stable. S1 and S2 are heard. Lungs are clear to auscultation bilaterally. Problem - Time spent with Patient (mins): 25 Plan - Discharge Medications Prescriptions: Nebivolol HCl [Bystolic] 10 mg PO DAILY #30 tab Diltiazem HCl [Cardizem CD] 180 mg PO DAILY #30 cap Digoxin [Lanoxin] 0.125 mg PO DAILY #30 tab Home Medications: Medication Instructions Recorded Confirmed Type Albuterol Sulfate [Proair HFA] 2 puff INH Q4HR PRN 01/09/20 06/08/20 History Apixaban [Eliquis] 5 mg PO BID 01/09/20 06/08/20 History Calcium Citrate/Vitamin D3 1 tablet PO BID 01/09/20 06/08/20 History [Citracal + D Maximum Caplet] Docusate [Colace] 100 mg PO HS PRN 01/09/20 06/08/20 History Estrogens, Conjugated [Premarin] 0.625 mg PO DAILY 01/09/20 06/08/20 History Gabapentin 300 mg PO BID 01/09/20 06/08/20 History Montelukast Sodium [Singulair] 10 mg PO HS 01/09/20 06/08/20 History Multivit-Min/Iron/Folic/Lutein 1 each PO DAILY 01/09/20 06/08/20 History [Multivitamin Women 50 Plus Tab] Restasis [Restasis Ophth Drops] 1 drop EA EYE BID 01/09/20 06/08/20 History cloNIDine [Catapres] 0.1 mg PO BID PRN 05/25/20 06/08/20 History Boy Cit/Mag/D3/Zn/[employer]/Daljit/Bor 1 tablet PO DAILY 06/08/20 06/08/20 History [Citracal with Vitamin D Plus Magnesium] Levalbuterol HCl 1.25 mg NEB Q8HR PRN 06/08/20 06/08/20 History Prednisone [predniSONE 10 mg 20 mg PO ASDIR 06/08/20 06/08/20 History Dosepak] Digoxin [Lanoxin] 0.125 mg PO DAILY #30 tab 06/11/20 Rx Diltiazem HCl [Cardizem CD] 180 mg PO DAILY #30 cap 06/11/20 Rx Nebivolol HCl [Bystolic] 10 mg PO DAILY #30 tab 06/11/20 Rx Allergies: digoxin Allergy (Severe, Verified 05/25/20 13:43) Diarrhea dronedarone [From Multaq] Allergy (Severe, Verified 05/25/20 13:43) Passout, nausea, dizzy,weak. tizanidine Allergy (Intermediate, Verified 05/25/20 13:43) - Discharge Instructions Discharge Instructions:: Check your blood pressure and heart rate 3 times a day and shows readings to your primary care provider. Activity:: Activity as Tolerated Nourishment:: Fluid Restriction Diet (1500 mls per day), Heart Healthy Diet - Follow up Plan Referrals: Cardiac Rehab -[place] [Outside] - 7 Days (Your doctor has ordered outpatient cardiac rehab for you to begin within 1-2 weeks after you go home from the hospital. The location nearest to you is the [facility]. The front office in [place] will call you in 3-5 days to get you scheduled for your evaluation. If you do not receive a call, please reach out to them at [phone] and request an appointment. Should you have any trouble or need assistance, please call the cardiac rehab main line in [place] at [phone]) Dennis Paz MD [Active] - Randee Alvarado MD [Primary Care Provider] - 3 Days Disposition: HOME Quality - Care Measures CORE MEASURES:: N/A
--- NOTE | 2020-06-13 18:49 | PQF ---
Dear : Dl Webb Date 06/13/2020 Please exercise your independent, professional judgment in responding to the clarification form. Clinical indicators are provided on the bottom of this form for your review Can you please further clarify the type and acuity of CHF? Please check appropriate box(es): HEART FAILURE: A. ACUITY [ ] Acute [ ] Acute on Chronic [ x ] Chronic B. TYPE: [ ] Systolic / HFrEF [ x ] Diastolic / HFpEF [ ] Combined Systolic / Diastolic [ ] Other diagnosis, please specify [ ] Unable to determine Physician Signature: Date/Time: For continuity of documentation, please document condition throughout progress notes and discharge summary. Thank You. To be completed by CDI/Coding staff for physician review: Present Clinical Indicators - Signs / Symptoms / Labs Results and Location in Medical Record [ x ] EF of 50-55% DS pg.1 [ x ] Diastolic function could not be assessed 2/2 atrial fib DS pg.1 [ x ] BNP: 404.2H Laboratory [ x ] Congestive heart failure exacerbation ED Provider pg.4 [ x ] CHF (Congestive heart failure, status: Chronic H and P pg.5 [ x ] CHF, presented BNP 404, on 03/15 BNP 278 H and P pg.6 [ x ] Chest X ray: No confluent airspace consolidation, pneumothorax or effusion Chest X ray 06/08 [ x ] no JVD HP 06/08 [ x ] no edema HP 06/08 Present Risk Factors Results and Location in Medical Record [ x ] AFIB H and P pg.1 [ x ] HTN H and P pg.1 [ x ] Pulmonary hypertension H and P pg.1 [ x ] 84 years old H and P pg.1 [ x ] Former smoker H and P pg.3 Present Treatments Results and Location in Medical Record [ x ] Echocardiogram 06/09 Echocardiogram 06/09 [ x ] IV Lasix 10mg IV MAR [ x ] Cardiology Consult Dr. Paz 06/09 [ x ] Chest X ray 06/08 Chest X ray 06/08 [ x ] Monitor I and O HP 06/08 [ x ] Daily weight HP 06/08 [ x ] Fluid restriction HP 06/08 CDS/[employer] Signature: James Carlygerri Phone #: [phone] Date/Time: 06/13/2020 This is a permanent part of the Medical Record [facility]
== END 2020-06-11 16:25 | disposition home or self-care (01) | DRG 312 ==
LOC: ERS 08:53 → ERHOLD 12:08 → INTOOBSV 12:08 → 2SE 14:56 → OBSVTOIN 06-10 10:13
PROVIDERS: ADMIT Student in an Organized Health Care Education/Training Program; ATTEND Internal Medicine
DX: I95.2 Hypotension due to drugs (principal); I48.19 Other persistent atrial fibrillation; E87.1 Hypo-osmolality and hyponatremia; I50.32 Chronic diastolic (congestive) heart failure; T46.5X5A Adverse effect of other antihypertensive drugs, initial encounter; Z20.828 Contact with and (suspected) exposure to other viral communicable diseases; J45.909 Unspecified asthma, uncomplicated; Z96.641 Presence of right artificial hip joint; I48.0 Paroxysmal atrial fibrillation; I11.0 Hypertensive heart disease with heart failure; I27.20 Pulmonary hypertension, unspecified; Z88.8 Allergy status to other drugs, medicaments and biological substances; Z90.710 Acquired absence of both cervix and uterus; Z90.49 Acquired absence of other specified parts of digestive tract; Z87.891 Personal history of nicotine dependence; Z79.02 Long term (current) use of antithrombotics/antiplatelets; Z79.890 Hormone replacement therapy; Z79.899 Other long term (current) drug therapy; Z90.89 Acquired absence of other organs
CPT/HCPCS: 36415; 71045; 80048; 80053; 80061; 81003; 83690; 83735; 83880; 84443; 84484; 85025; 85379; 87086; 87635; 93005; 93306; 93798; 94760; 96374; 96375; 96376; G0378; J1160; J1940; J7512; U0003

== ENCOUNTER 2020-10-31 10:34 | Outpatient (CLI) | payer MEDICARE | END 2020-10-31 10:35 | disposition home or self-care (01) | LOC: BICMAMMO 10:34 | PROVIDERS: ATTEND Internal Medicine | DX: Z12.31 Encounter for screening mammogram for malignant neoplasm of breast (principal); Z13.820 Encounter for screening for osteoporosis; Z91.89 Other specified personal risk factors, not elsewhere classified | CPT/HCPCS: 77063; 77067; 77080 ==

== ENCOUNTER 2022-08-22 07:31 | Outpatient (CLI) | payer MEDICARE | END 2022-08-22 07:32 | disposition home or self-care (01) | LOC: BICULT 07:31 | PROVIDERS: ATTEND Internal Medicine | DX: R10.12 Left upper quadrant pain (principal) | CPT/HCPCS: 76700 ==

== ENCOUNTER 2022-12-08 10:28 | Outpatient (CLI) | payer MEDICARE | END 2022-12-08 10:29 | disposition home or self-care (01) | LOC: BICULT 10:28 | PROVIDERS: ATTEND Internal Medicine Nephrology | DX: R80.9 Proteinuria, unspecified (principal) | CPT/HCPCS: 76770 ==

== ENCOUNTER 2023-02-17 13:46 | Outpatient (CLI) | payer MEDICARE | END 2023-02-17 13:47 | disposition home or self-care (01) | LOC: BICMAMMO 13:46 | PROVIDERS: ATTEND Internal Medicine | DX: N63.10 Unspecified lump in the right breast, unspecified quadrant (principal); N60.41 Mammary duct ectasia of right breast | CPT/HCPCS: 76642 ×2; 77066; G0279 ==

== ENCOUNTER 2023-03-10 12:56 | Outpatient (CLI) | payer MEDICARE | END 2023-03-10 12:57 | disposition home or self-care (01) | LOC: BICMAMMO 12:56 | PROVIDERS: ATTEND Internal Medicine | DX: Z13.820 Encounter for screening for osteoporosis (principal); Z78.0 Asymptomatic menopausal state | CPT/HCPCS: 77080 ==

== ENCOUNTER 2023-05-14 10:18 | Outpatient (CLI) | payer MEDICARE ==
[2023-05-14 11:36] LABS: #Basophils 0.1 10x3/uL (0.0-0.2); #Eosinphils 0.2 10x3/uL (0.0-0.5); #Monocytes 0.6 10x3/uL (0.0-1.1); %Basophils 0.9 % (0.0-2.0); %Eosinophils 3.7 % (0.0-6.0); %Lymphocytes 15.2 % (18.0-47.0); %Monocytes 10.1 % (0.0-10.0); %Neutrophils 69.7 % (40.0-75.0); Hematocrit 34.6 % (34.9-44.5); Mean Corpuscular HGB CONC 31.8 g/dL (32.0-36.0); Mean Corpuscular Hemoglobin 28.8 pg (27.0-33.0); Mean Corpuscular Volume 90.6 fl (81.6-98.3); Mean Platelet Volume 9.5 fl (7.4-10.4); Platelet Count 345 10x3/uL (150-450); RBC Distribution Width 13.4 % (11.5-14.5); Red Blood Cell (RBC) Count 3.82 10x6/uL (3.90-5.03); White Blood Cell (WBC) Count 5.7 10x3/uL (3.5-10.5)
[2023-05-14 11:50] LABS: INR-International Normal Ratio 1.1; Prothrombin Time 12.3 sec (9.5-12.1)
[2023-05-14 12:05] LABS: Anion Gap 16 mmol/L (10-20); BUN (Urea Nitrogen) 17 mg/dL (9.8-20.1); Calc. Creatinine Clearance 0 mL/min (70-130); Calcium 9.6 mg/dL (7.8-10.44); Carbon Dioxide 23 mmol/L (23-31); Chloride 100 mmol/L (98-107); Estimated GFR 59; Glucose 122 mg/dL (83-110); Potassium 4.2 mmol/L (3.5-5.1); Sodium 135 mmol/L (136-145)
== END 2023-05-14 10:19 | disposition home or self-care (01) ==
LOC: LABBT 10:18
PROVIDERS: ATTEND Orthopaedic Surgery
DX: Z01.818 Encounter for other preprocedural examination (principal); M16.12 Unilateral primary osteoarthritis, left hip
CPT/HCPCS: 80048; 85025; 85610; 87081; 93005; 93010

== ENCOUNTER 2023-05-18 05:49 | Inpatient (IN) | payer MEDICARE ==
[2023-05-14 11:05] VITALS: BMI 24.0
[2023-05-18] MEDS ORDERED: Vancomycin 1 GM/200 ML (FROZEN) BAG ONE (06:14)
[2023-05-18] MEDS ORDERED: Tranexamic Acid 1,000 MG/10 ML VIAL ONE (06:14)
[2023-05-18] MEDS ORDERED: Sodium Chloride 0.9% 100 ML ONE ×3 (06:14→13:37)
[2023-05-18] MEDS ORDERED: Ondansetron PF 4 MG/2 ML Vial ONE ×2 (06:20→07:29)
[2023-05-18] MEDS ORDERED: Propofol 1,000 MG/100 ML VIAL IV ONE (06:20)
[2023-05-18] MEDS ORDERED: fentaNYL 50 mcg/mL 1 mL Vial ONE ×6 (06:20→15:38)
[2023-05-18] MEDS ORDERED: Bupivacaine PF 0.5% 30 ML VIAL ONE (06:52)
[2023-05-18] MEDS ORDERED: CEFAZOLIN 2 GM VIAL ONE ×2 (06:58→13:36)
[2023-05-18] MEDS ORDERED: Promethazine HCl 25 MG/ML VIAL IM PRN ×2 (07:00→08:47)
[2023-05-18] MEDS ORDERED: diphenhydrAMINE 25 MG CAP PO PRN (07:00)
[2023-05-18] MEDS ORDERED: Zolpidem Tartrate 5 MG TAB PO PRN (07:00)
[2023-05-18] MEDS ORDERED: Ondansetron PF 4 MG/2 ML Vial IVP PRN (07:00)
[2023-05-18] MEDS ORDERED: cloNIDine 0.1 MG TAB PO PRN (07:05)
[2023-05-18] MEDS ORDERED: Albuterol 200 PUFF (6.7GM INHALER) INH PRN (07:05)
[2023-05-18] MEDS ORDERED: LEVALBUTEROL HCL 1.25 MG/3 ML NEB PRN (07:05)
[2023-05-18] MEDS ORDERED: Non-Formulary Item 1 EACH (Azelastine Hcl [Azelastine Hcl 0.15% Nasal Spray] 205.5 MCG/0. EA NARE PRN (07:05)
[2023-05-18] MEDS ORDERED: Furosemide 20 MG TAB PO PRN (07:05)
[2023-05-18] MEDS ORDERED: Azelastine 137 MCG/NASAL Spray 30 ML NS PRN (07:19)
[2023-05-18] MEDS ORDERED: Ropivacaine 0.5% HCl/PF (150 MG/30 ML VIAL) ONE (08:05)
[2023-05-18] MEDS ORDERED: Ondansetron HCl/PF 4 MG/2 ML Vial IVP PRN (08:47)
[2023-05-18] MEDS ORDERED: cycloSPORINE 0.05% Ophthalmic Droperette EA EYE SCH (09:00)
[2023-05-18] MEDS ORDERED: Non-Formulary Item 1 EACH (Fluticasone/Vilanterol [Breo Ellipta 200-25 Mcg Inh] 1 EACH Bl IH SCH (09:00)
[2023-05-18] MEDS ORDERED: Non-Formulary Item 1 EACH (Nebivolol Hcl [Bystolic] 10 MG Tab) PO SCH (09:00)
[2023-05-18] MEDS ORDERED: Non-Formulary Item 1 EACH (Multivit-Min/Iron/Folic/Lutein [Multivitamin Women 50 Plus Tab PO SCH (09:00)
[2023-05-18] MEDS ORDERED: Non-Formulary Item 1 EACH (Fluticasone Furoate [Arnuity Ellipta] 200 MCG Blst.W.Dev) IH SCH (09:00)
[2023-05-18] MEDS ORDERED: HYDROmorphone 0.5 MG/0.5 ML SYRINGE ONE ×3 (11:36→13:44)
[2023-05-18] MEDS: CEFAZOLIN 2 GM in Sodium Chloride 0.9% 100 ML IVPB SCH ×2 (13:50→21:43)
[2023-05-18] MEDS: fentaNYL 50 mcg/mL 1 mL Vial SLOW IVP PRN (17:26)
[2023-05-18] MEDS: Sodium Chloride 0.9% 1,000 ML IV SCH ×2 (17:32→21:46)
[2023-05-18] MEDS: Mometasone 200 MCG/Formoterol 5 MCG 120 PUFF INHALER INH SCH (19:31)
[2023-05-18] MEDS: Ferrous Gluconate 324 MG TAB PO SCH ×2 (21:39→21:46)
[2023-05-18] MEDS: Digoxin 0.125 MG TAB PO SCH (21:39)
[2023-05-18] MEDS: Gabapentin 300 MG CAP PO SCH ×2 (21:39→21:44)
[2023-05-18] MEDS: Aspirin 81 mg Enteric Coated Tablet PO SCH ×2 (21:39→21:47)
[2023-05-18] MEDS: Estradiol 1 MG TAB PO SCH (21:39)
[2023-05-18] MEDS: Docusate 100 MG CAP PO SCH ×2 (21:39→21:44)
[2023-05-18] MEDS: Multivitamin W/ Minerals 1 TAB PO SCH (21:40)
[2023-05-18] MEDS: Nebivolol HCl 5 MG TAB PO SCH (21:40)
[2023-05-18] MEDS: Losartan 25 MG TAB PO SCH (21:40)
[2023-05-18] MEDS: Mometasone 100 MCG/PUFF (1 INHALER) INH SCH (21:40)
[2023-05-18] MEDS: Montelukast Sodium 10 mg Tablet PO SCH (21:44)
[2023-05-18] MEDS: cycloSPORINE 0.05% Ophthalmic Droperette EA EYE SCH ×2 (21:45→21:46)
[2023-05-18] MEDS: Senokot S 8.6-50 MG TAB PO SCH ×2 (21:45)
[2023-05-18] MEDS: Amlodipine 10 MG TAB PO SCH (21:46)
[2023-05-18] MEDS: Calcium Carbonate 600 MG + Vit D TAB PO SCH (21:46)
[2023-05-18] MEDS: HYDROcodone/Acetaminophen 5/325 mg Tablet PO PRN (21:51)
[2023-05-19] MEDS: Sodium Chloride 0.9% 1,000 ML IV SCH ×2 (04:49→17:32)
[2023-05-19 05:36] LABS: Hematocrit 28.6 % (36.0-47.0); Hemoglobin 9.2 g/dL (12.0-16.0); Mean Corpuscular HGB CONC 32.2 g/dL (32.0-36.0); Mean Corpuscular Hemoglobin 29.3 pg (27.0-31.0); Mean Corpuscular Volume 91.1 fl (78.0-98.0); Mean Platelet Volume 9.7 fL (7.4-10.4); Platelet Count 247 10x3/uL (130-400); RBC Distribution Width 13.6 % (11.5-14.5); Red Blood Cell (RBC) Count 3.14 mill/uL (4.20-5.40); White Blood Cell (WBC) Count 9.1 10x3/uL (4.8-10.8)
[2023-05-19] MEDS: Docusate 100 MG CAP PO SCH ×2 (09:03→20:43)
[2023-05-19] MEDS: Senokot S 8.6-50 MG TAB PO SCH ×2 (09:04→20:41)
[2023-05-19] MEDS: Estradiol 1 MG TAB PO SCH (09:04)
[2023-05-19] MEDS: Aspirin 81 mg Enteric Coated Tablet PO SCH ×2 (09:05→20:44)
[2023-05-19] MEDS: Multivitamin W/ Minerals 1 TAB PO SCH (09:05)
[2023-05-19] MEDS: Digoxin 0.125 MG TAB PO SCH (09:05)
[2023-05-19] MEDS: Ferrous Gluconate 324 MG TAB PO SCH ×2 (09:05→20:42)
[2023-05-19] MEDS: Losartan 25 MG TAB PO SCH (09:06)
[2023-05-19] MEDS: HYDROcodone/Acetaminophen 5/325 mg Tablet PO PRN (09:07)
[2023-05-19] MEDS: Gabapentin 300 MG CAP PO SCH ×2 (09:09→20:43)
[2023-05-19] MEDS: Mometasone 100 MCG/PUFF (1 INHALER) INH SCH (11:15)
[2023-05-19] MEDS: Mometasone 200 MCG/Formoterol 5 MCG 120 PUFF INHALER INH SCH ×2 (11:15→18:46)
[2023-05-19] MEDS: cycloSPORINE 0.05% Ophthalmic Droperette EA EYE SCH ×2 (11:35→20:44)
[2023-05-19] MEDS: Nebivolol HCl 5 MG TAB PO SCH (11:36)
[2023-05-19] MEDS ORDERED: Midodrine HCl 5 MG TAB PO SCH (14:45)
[2023-05-19] MEDS ORDERED: Acetaminophen 500 MG TAB PO SCH (14:45)
[2023-05-19] MEDS: traMADol HCl 50 MG TAB PO PRN (20:42)
[2023-05-19] MEDS: Montelukast Sodium 10 mg Tablet PO SCH (20:42)
[2023-05-19] MEDS: Acetaminophen 325 MG TAB PO PRN (20:43)
[2023-05-19] MEDS: Calcium Carbonate 600 MG + Vit D TAB PO SCH (20:44)
[2023-05-20] MEDS: fentaNYL 50 mcg/mL 1 mL Vial SLOW IVP PRN (00:57)
[2023-05-20] MEDS ORDERED: Cyclobenzaprine 10 MG TAB PO SCH (01:00)
[2023-05-20] MEDS: Sodium Chloride 0.9% 1,000 ML IV SCH ×3 (01:44→22:52)
[2023-05-20 05:43] LABS: #Basophils 0.1 thou/uL (0.0-0.2); #Eosinphils 0.2 thou/uL (0.0-0.7); #Monocytes 1.1 thou/uL (0.11-0.59); #Neutrophils 7.7 thou/uL (1.40-6.50); %Basophils 0.5 % (0.0-1.0); %Eosinophils 1.9 % (0.0-10.0); %Lymphocytes 9.9 % (21.0-51.0); %Monocytes 10.9 % (0.0-10.0); %Neutrophils 76.4 % (42.0-75.0); Hematocrit 25.9 % (36.0-47.0); Hemoglobin 8.5 g/dL (12.0-16.0); Mean Corpuscular HGB CONC 32.8 g/dL (32.0-36.0); Mean Corpuscular Hemoglobin 29.8 pg (27.0-31.0); Mean Corpuscular Volume 90.9 fl (78.0-98.0); Mean Platelet Volume 9.7 fL (7.4-10.4); Platelet Count 208 10x3/uL (130-400); RBC Distribution Width 13.5 % (11.5-14.5); Red Blood Cell (RBC) Count 2.85 mill/uL (4.20-5.40)
[2023-05-20 06:16] LABS: Anion Gap 9 mmol/L (10-20); BUN (Urea Nitrogen) 14 mg/dL (9.8-20.1); Calc. Creatinine Clearance 51 mL/min (70-130); Calcium 8.9 mg/dL (7.8-10.44); Carbon Dioxide 26 mmol/L (23-31); Chloride 95 mmol/L (98-107); Estimated GFR 73; Glucose 110 mg/dL (83-110); Magnesium 1.8 mg/dL (1.6-2.6); Sodium 126 mmol/L (136-145)
[2023-05-20] MEDS: Mometasone 200 MCG/Formoterol 5 MCG 120 PUFF INHALER INH SCH ×2 (07:54→18:55)
[2023-05-20] MEDS: Mometasone 100 MCG/PUFF (1 INHALER) INH SCH (07:57)
[2023-05-20] MEDS: HYDROcodone/Acetaminophen 5/325 mg Tablet PO PRN ×2 (09:24→18:15)
[2023-05-20] MEDS: Gabapentin 300 MG CAP PO SCH ×2 (09:25→21:27)
[2023-05-20] MEDS: Digoxin 0.125 MG TAB PO SCH (10:15)
[2023-05-20] MEDS: Aspirin 81 mg Enteric Coated Tablet PO SCH ×2 (10:15→21:29)
[2023-05-20] MEDS: Ferrous Gluconate 324 MG TAB PO SCH ×2 (10:15→21:29)
[2023-05-20] MEDS: Senokot S 8.6-50 MG TAB PO SCH ×2 (10:15→21:28)
[2023-05-20] MEDS: Docusate 100 MG CAP PO SCH ×2 (10:15→21:29)
[2023-05-20] MEDS: Estradiol 1 MG TAB PO SCH (10:16)
[2023-05-20] MEDS: Multivitamin W/ Minerals 1 TAB PO SCH (10:16)
[2023-05-20] MEDS: cycloSPORINE 0.05% Ophthalmic Droperette EA EYE SCH ×2 (10:16→21:29)
[2023-05-20] MEDS: Cyclobenzaprine 10 MG TAB PO PRN (21:28)
[2023-05-20] MEDS: Calcium Carbonate 600 MG + Vit D TAB PO SCH (21:29)
[2023-05-20] MEDS: Montelukast Sodium 10 mg Tablet PO SCH (21:29)
[2023-05-20] MEDS: Acetaminophen 325 MG TAB PO PRN (22:40)
[2023-05-21] MEDS: Sodium Chloride 0.9% 1,000 ML IV SCH ×2 (03:55→16:12)
[2023-05-21] MEDS: Mometasone 100 MCG/PUFF (1 INHALER) INH SCH (07:02)
[2023-05-21] MEDS: Mometasone 200 MCG/Formoterol 5 MCG 120 PUFF INHALER INH SCH ×2 (07:03→18:15)
[2023-05-21] MEDS: Digoxin 0.125 MG TAB PO SCH (09:17)
[2023-05-21] MEDS: Senokot S 8.6-50 MG TAB PO SCH ×2 (09:19→21:35)
[2023-05-21] MEDS: Ferrous Gluconate 324 MG TAB PO SCH ×2 (09:20→21:35)
[2023-05-21] MEDS: Estradiol 1 MG TAB PO SCH (09:20)
[2023-05-21] MEDS: Multivitamin W/ Minerals 1 TAB PO SCH (09:20)
[2023-05-21] MEDS: Gabapentin 300 MG CAP PO SCH ×2 (09:20→21:37)
[2023-05-21] MEDS: Aspirin 81 mg Enteric Coated Tablet PO SCH ×2 (09:20→21:35)
[2023-05-21] MEDS: Docusate 100 MG CAP PO SCH ×2 (09:20→21:35)
[2023-05-21] MEDS: cycloSPORINE 0.05% Ophthalmic Droperette EA EYE SCH ×2 (09:21→23:10)
[2023-05-21] MEDS: Losartan 25 MG TAB PO SCH (10:26)
[2023-05-21] MEDS: HYDROcodone/Acetaminophen 5/325 mg Tablet PO PRN ×2 (10:30→17:10)
[2023-05-21] MEDS ORDERED: hydrALAZINE 20 MG/ML VIAL SLOW IVP PRN (14:22)
[2023-05-21 14:59] LABS: #Basophils 0.1 thou/uL (0.0-0.2); #Eosinphils 0.2 thou/uL (0.0-0.7); #Monocytes 0.5 thou/uL (0.11-0.59); #Neutrophils 6.5 thou/uL (1.40-6.50); %Basophils 0.6 % (0.0-1.0); %Eosinophils 2.1 % (0.0-10.0); %Monocytes 6.1 % (0.0-10.0); %Neutrophils 81.8 % (42.0-75.0); Hematocrit 29.9 % (36.0-47.0); Hemoglobin 9.8 g/dL (12.0-16.0); Mean Corpuscular HGB CONC 32.8 g/dL (32.0-36.0); Mean Corpuscular Hemoglobin 29.6 pg (27.0-31.0); Mean Corpuscular Volume 90.3 fl (78.0-98.0); Mean Platelet Volume 10.2 fL (7.4-10.4); Platelet Count 341 10x3/uL (130-400); RBC Distribution Width 13.5 % (11.5-14.5); Red Blood Cell (RBC) Count 3.31 mill/uL (4.20-5.40)
[2023-05-21 15:26] LABS: Anion Gap 12 mmol/L (10-20); BUN (Urea Nitrogen) 12 mg/dL (9.8-20.1); Calc. Creatinine Clearance 52 mL/min (70-130); Calcium 9.7 mg/dL (7.8-10.44); Carbon Dioxide 27 mmol/L (23-31); Chloride 97 mmol/L (98-107); Estimated GFR 75; Glucose 169 mg/dL (83-110); Potassium 4.1 mmol/L (3.5-5.1); Sodium 132 mmol/L (136-145)
[2023-05-21] MEDS: Calcium Carbonate 600 MG + Vit D TAB PO SCH (21:35)
[2023-05-21] MEDS: Amlodipine 10 MG TAB PO SCH (21:37)
[2023-05-21] MEDS: Montelukast Sodium 10 mg Tablet PO SCH (21:37)
[2023-05-21] MEDS: Acetaminophen 325 MG TAB PO PRN (21:37)
[2023-05-21] MEDS: Cyclobenzaprine 10 MG TAB PO PRN (23:14)
[2023-05-22] MEDS: Sodium Chloride 0.9% 1,000 ML IV SCH ×3 (01:11→21:07)
[2023-05-22] MEDS: traMADol HCl 50 MG TAB PO PRN (02:36)
[2023-05-22 06:09] LABS: #Basophils 0.1 thou/uL (0.0-0.2); #Eosinphils 0.3 thou/uL (0.0-0.7); #Monocytes 0.7 thou/uL (0.11-0.59); #Neutrophils 4.4 thou/uL (1.40-6.50); %Basophils 0.8 % (0.0-1.0); %Eosinophils 5.2 % (0.0-10.0); %Lymphocytes 13.4 % (21.0-51.0); %Monocytes 10.2 % (0.0-10.0); %Neutrophils 69.8 % (42.0-75.0); Hematocrit 25.6 % (36.0-47.0); Hemoglobin 8.4 g/dL (12.0-16.0); Mean Corpuscular HGB CONC 32.8 g/dL (32.0-36.0); Mean Corpuscular Hemoglobin 29.6 pg (27.0-31.0); Mean Corpuscular Volume 90.1 fl (78.0-98.0); Mean Platelet Volume 9.6 fL (7.4-10.4); Platelet Count 292 10x3/uL (130-400); RBC Distribution Width 13.8 % (11.5-14.5); Red Blood Cell (RBC) Count 2.84 mill/uL (4.20-5.40); White Blood Cell (WBC) Count 6.4 10x3/uL (4.8-10.8)
[2023-05-22 06:39] LABS: Anion Gap 13 mmol/L (10-20); BUN (Urea Nitrogen) 12 mg/dL (9.8-20.1); Calc. Creatinine Clearance 58 mL/min (70-130); Calcium 9.3 mg/dL (7.8-10.44); Carbon Dioxide 24 mmol/L (23-31); Chloride 102 mmol/L (98-107); Estimated GFR 84; Glucose 105 mg/dL (83-110); Potassium 4.2 mmol/L (3.5-5.1); Sodium 135 mmol/L (136-145)
[2023-05-22] MEDS: Mometasone 200 MCG/Formoterol 5 MCG 120 PUFF INHALER INH SCH ×2 (07:50→18:28)
[2023-05-22] MEDS: Mometasone 100 MCG/PUFF (1 INHALER) INH SCH (07:51)
[2023-05-22] MEDS: Digoxin 0.125 MG TAB PO SCH (09:03)
[2023-05-22] MEDS: Docusate 100 MG CAP PO SCH ×2 (09:03→20:38)
[2023-05-22] MEDS: Aspirin 81 mg Enteric Coated Tablet PO SCH ×2 (09:03→20:40)
[2023-05-22] MEDS: Multivitamin W/ Minerals 1 TAB PO SCH (09:03)
[2023-05-22] MEDS: Estradiol 1 MG TAB PO SCH (09:03)
[2023-05-22] MEDS: Ferrous Gluconate 324 MG TAB PO SCH ×2 (09:04→20:40)
[2023-05-22] MEDS: Gabapentin 300 MG CAP PO SCH ×2 (09:04→20:38)
[2023-05-22] MEDS: Senokot S 8.6-50 MG TAB PO SCH ×2 (09:04→20:38)
[2023-05-22] MEDS: cycloSPORINE 0.05% Ophthalmic Droperette EA EYE SCH ×2 (09:05→20:40)
[2023-05-22] MEDS: HYDROcodone/Acetaminophen 5/325 mg Tablet PO PRN ×3 (09:54→21:51)
[2023-05-22] MEDS: Amlodipine 10 MG TAB PO SCH (20:39)
[2023-05-22] MEDS: Calcium Carbonate 600 MG + Vit D TAB PO SCH (20:39)
[2023-05-22] MEDS: Montelukast Sodium 10 mg Tablet PO SCH (20:40)
[2023-05-23] MEDS: HYDROcodone/Acetaminophen 5/325 mg Tablet PO PRN ×3 (06:44→17:10)
[2023-05-23] MEDS: Sodium Chloride 0.9% 1,000 ML IV SCH ×2 (07:14→19:38)
[2023-05-23] MEDS: Mometasone 200 MCG/Formoterol 5 MCG 120 PUFF INHALER INH SCH ×2 (07:31→19:46)
[2023-05-23] MEDS: Mometasone 100 MCG/PUFF (1 INHALER) INH SCH (07:32)
[2023-05-23] MEDS: Estradiol 1 MG TAB PO SCH ×2 (10:09→10:10)
[2023-05-23] MEDS: Aspirin 81 mg Enteric Coated Tablet PO SCH ×2 (10:09→20:34)
[2023-05-23] MEDS: Digoxin 0.125 MG TAB PO SCH (10:09)
[2023-05-23] MEDS: Losartan 25 MG TAB PO SCH (10:10)
[2023-05-23] MEDS: Senokot S 8.6-50 MG TAB PO SCH ×2 (10:10→20:34)
[2023-05-23] MEDS: Docusate 100 MG CAP PO SCH ×2 (10:10→20:33)
[2023-05-23] MEDS: Multivitamin W/ Minerals 1 TAB PO SCH (10:11)
[2023-05-23] MEDS: Gabapentin 300 MG CAP PO SCH ×2 (10:11→20:33)
[2023-05-23] MEDS: Ferrous Gluconate 324 MG TAB PO SCH ×2 (10:11→20:34)
[2023-05-23] MEDS: cycloSPORINE 0.05% Ophthalmic Droperette EA EYE SCH ×2 (10:22→20:36)
[2023-05-23] MEDS: traMADol HCl 50 MG TAB PO PRN ×2 (12:31→20:34)
[2023-05-23] MEDS: Cyclobenzaprine 10 MG TAB PO PRN ×2 (13:07→22:43)
[2023-05-23] MEDS: Amlodipine 10 MG TAB PO SCH (20:32)
[2023-05-23] MEDS: Calcium Carbonate 600 MG + Vit D TAB PO SCH (20:34)
[2023-05-23] MEDS: Montelukast Sodium 10 mg Tablet PO SCH (20:35)
[2023-05-24] MEDS: HYDROcodone/Acetaminophen 5/325 mg Tablet PO PRN ×3 (00:01→23:12)
[2023-05-24] MEDS: Sodium Chloride 0.9% 1,000 ML IV SCH ×3 (03:43→21:58)
[2023-05-24] MEDS: Mometasone 200 MCG/Formoterol 5 MCG 120 PUFF INHALER INH SCH ×2 (06:52→19:21)
[2023-05-24] MEDS: Mometasone 100 MCG/PUFF (1 INHALER) INH SCH (06:52)
[2023-05-24] MEDS: traMADol HCl 50 MG TAB PO PRN ×2 (09:13→20:07)
[2023-05-24] MEDS: Aspirin 81 mg Enteric Coated Tablet PO SCH ×2 (09:13→20:06)
[2023-05-24] MEDS: Docusate 100 MG CAP PO SCH ×2 (09:14→20:07)
[2023-05-24] MEDS: Gabapentin 300 MG CAP PO SCH ×2 (09:14→20:07)
[2023-05-24] MEDS: Digoxin 0.125 MG TAB PO SCH (09:14)
[2023-05-24] MEDS: Losartan 25 MG TAB PO SCH (09:15)
[2023-05-24] MEDS: Ferrous Gluconate 324 MG TAB PO SCH ×2 (09:15→20:06)
[2023-05-24] MEDS: Estradiol 1 MG TAB PO SCH (09:17)
[2023-05-24] MEDS: Multivitamin W/ Minerals 1 TAB PO SCH (09:18)
[2023-05-24] MEDS: Senokot S 8.6-50 MG TAB PO SCH ×2 (09:18→20:06)
[2023-05-24] MEDS: cycloSPORINE 0.05% Ophthalmic Droperette EA EYE SCH ×2 (10:32→20:08)
[2023-05-24] MEDS: Amlodipine 10 MG TAB PO SCH (20:07)
[2023-05-24] MEDS: Montelukast Sodium 10 mg Tablet PO SCH (20:07)
[2023-05-24] MEDS: Calcium Carbonate 600 MG + Vit D TAB PO SCH (20:07)
[2023-05-24] MEDS: Cyclobenzaprine 10 MG TAB PO PRN (23:13)
[2023-05-25] MEDS: Mometasone 100 MCG/PUFF (1 INHALER) INH SCH (06:58)
[2023-05-25] MEDS: Mometasone 200 MCG/Formoterol 5 MCG 120 PUFF INHALER INH SCH ×2 (06:59→19:19)
[2023-05-25] MEDS: Gabapentin 300 MG CAP PO SCH ×2 (09:40→20:50)
[2023-05-25] MEDS: HYDROcodone/Acetaminophen 5/325 mg Tablet PO PRN ×2 (09:41→18:39)
[2023-05-25] MEDS: Multivitamin W/ Minerals 1 TAB PO SCH (09:42)
[2023-05-25] MEDS: Estradiol 1 MG TAB PO SCH (09:42)
[2023-05-25] MEDS: Ferrous Gluconate 324 MG TAB PO SCH ×2 (09:42→20:49)
[2023-05-25] MEDS: Losartan 25 MG TAB PO SCH (09:42)
[2023-05-25] MEDS: Aspirin 81 mg Enteric Coated Tablet PO SCH (09:42)
[2023-05-25] MEDS: Docusate 100 MG CAP PO SCH ×2 (09:42→20:49)
[2023-05-25] MEDS: Digoxin 0.125 MG TAB PO SCH (09:43)
[2023-05-25] MEDS: Senokot S 8.6-50 MG TAB PO SCH ×2 (09:46→20:49)
[2023-05-25] MEDS: cycloSPORINE 0.05% Ophthalmic Droperette EA EYE SCH ×2 (09:47→20:54)
[2023-05-25] MEDS: Sodium Chloride 0.9% 1,000 ML IV SCH ×2 (09:48→20:56)
[2023-05-25] MEDS: Calcium Carbonate 600 MG + Vit D TAB PO SCH (20:49)
[2023-05-25] MEDS: Amlodipine 10 MG TAB PO SCH (20:49)
[2023-05-25] MEDS: Cyclobenzaprine 10 MG TAB PO PRN (20:49)
[2023-05-25] MEDS: Montelukast Sodium 10 mg Tablet PO SCH (20:49)
[2023-05-25] MEDS: traMADol HCl 50 MG TAB PO PRN (20:49)
[2023-05-25] MEDS: Apixaban 5 MG TAB PO SCH (20:52)
[2023-05-26] MEDS: traMADol HCl 50 MG TAB PO PRN ×2 (05:20→23:00)
[2023-05-26] MEDS: Sodium Chloride 0.9% 1,000 ML IV SCH ×2 (06:11→15:47)
[2023-05-26] MEDS: Mometasone 200 MCG/Formoterol 5 MCG 120 PUFF INHALER INH SCH ×2 (07:10→19:28)
[2023-05-26] MEDS: Mometasone 100 MCG/PUFF (1 INHALER) INH SCH (07:14)
[2023-05-26] MEDS: Senokot S 8.6-50 MG TAB PO SCH ×2 (08:47→20:29)
[2023-05-26] MEDS: Digoxin 0.125 MG TAB PO SCH (08:47)
[2023-05-26] MEDS: Estradiol 1 MG TAB PO SCH (08:48)
[2023-05-26] MEDS: Losartan 25 MG TAB PO SCH (08:48)
[2023-05-26] MEDS: Apixaban 5 MG TAB PO SCH ×2 (08:48→20:30)
[2023-05-26] MEDS: Ferrous Gluconate 324 MG TAB PO SCH ×2 (08:48→20:29)
[2023-05-26] MEDS: Docusate 100 MG CAP PO SCH ×2 (08:48→20:29)
[2023-05-26] MEDS: Multivitamin W/ Minerals 1 TAB PO SCH (08:48)
[2023-05-26] MEDS: Gabapentin 300 MG CAP PO SCH ×2 (08:48→20:30)
[2023-05-26] MEDS: cycloSPORINE 0.05% Ophthalmic Droperette EA EYE SCH ×2 (08:50→20:29)
[2023-05-26] MEDS: HYDROcodone/Acetaminophen 5/325 mg Tablet PO PRN ×2 (13:47→21:46)
[2023-05-26] MEDS: Cyclobenzaprine 10 MG TAB PO PRN ×2 (17:19→22:59)
[2023-05-26] MEDS: Acetaminophen 325 MG TAB PO PRN (17:24)
[2023-05-26] MEDS: Amlodipine 10 MG TAB PO SCH (20:29)
[2023-05-26] MEDS: Calcium Carbonate 600 MG + Vit D TAB PO SCH (20:29)
[2023-05-26] MEDS: Montelukast Sodium 10 mg Tablet PO SCH (20:30)
[2023-05-27] MEDS: Sodium Chloride 0.9% 1,000 ML IV SCH ×2 (02:48→12:21)
[2023-05-27] MEDS: Mometasone 200 MCG/Formoterol 5 MCG 120 PUFF INHALER INH SCH (07:03)
[2023-05-27] MEDS: Mometasone 100 MCG/PUFF (1 INHALER) INH SCH (07:05)
[2023-05-27 08:32] VITALS: TEMP 98
[2023-05-27] MEDS: Docusate 100 MG CAP PO SCH (08:56)
[2023-05-27] MEDS: Senokot S 8.6-50 MG TAB PO SCH (08:56)
[2023-05-27] MEDS: cycloSPORINE 0.05% Ophthalmic Droperette EA EYE SCH (08:56)
[2023-05-27] MEDS: Ferrous Gluconate 324 MG TAB PO SCH (08:57)
[2023-05-27] MEDS: Apixaban 5 MG TAB PO SCH (08:57)
[2023-05-27] MEDS: Estradiol 1 MG TAB PO SCH (08:58)
[2023-05-27] MEDS: Gabapentin 300 MG CAP PO SCH (08:58)
[2023-05-27] MEDS: Digoxin 0.125 MG TAB PO SCH (08:58)
[2023-05-27] MEDS: Multivitamin W/ Minerals 1 TAB PO SCH (08:58)
[2023-05-27] MEDS: Losartan 25 MG TAB PO SCH (08:59)
[2023-05-27] MEDS: traMADol HCl 50 MG TAB PO PRN (10:04)
[2023-05-27] MEDS: HYDROcodone/Acetaminophen 5/325 mg Tablet PO PRN (13:02)
[2023-05-27 13:27] VITALS: BP 111/70
[2023-05-27] MEDS ORDERED: Cyclobenzaprine 10 MG TAB PO PRN (14:48)
== END 2023-05-27 15:53 | disposition home health service (06) | DRG 470 ==
LOC: SDC 05:49 → SJJU 16:21
PROVIDERS: ADMIT Orthopaedic Surgery; ATTEND Orthopaedic Surgery
PROC: 0SRB0JZ Replacement of Left Hip Joint with Synthetic Substitute, Open Approach (ICD-10-PCS; principal; 2023-05-18)
DX: M16.12 Unilateral primary osteoarthritis, left hip (principal); I50.32 Chronic diastolic (congestive) heart failure; I48.20 Chronic atrial fibrillation, unspecified; E87.1 Hypo-osmolality and hyponatremia; J45.909 Unspecified asthma, uncomplicated; Z96.641 Presence of right artificial hip joint; I11.0 Hypertensive heart disease with heart failure; I95.9 Hypotension, unspecified; D50.0 Iron deficiency anemia secondary to blood loss (chronic); D47.2 Monoclonal gammopathy; I08.1 Rheumatic disorders of both mitral and tricuspid valves; I27.20 Pulmonary hypertension, unspecified; E86.1 Hypovolemia; Z90.49 Acquired absence of other specified parts of digestive tract; Z98.890 Other specified postprocedural states; Z79.01 Long term (current) use of anticoagulants; Z79.899 Other long term (current) drug therapy
CPT/HCPCS: 36415; 80048; 83735; 83880; 85025; 85027; C1776; J1170; J2405; J2704; J2795; J3010; J3370-JW; J3490; J7050; S0020

== ENCOUNTER 2024-05-17 10:09 | Emergency (ER) | payer MEDICARE ==
[~2024-05-17 10:09] MED LIST: Iopamidol-370 76% 500 ML MDV (1 ML CHARGE) ONE
[2024-05-17] MEDS ORDERED: Dexamethasone 10 MG/ML VIAL ONE (11:04)
[2024-05-17] MEDS ORDERED: Ipratropium/Albuterol 3 ML NEB ONE (11:09)
[2024-05-17 11:16] LABS: #Basophils 0.04 10x3/uL (0.0-0.2); %Basophils 0.5 % (0.0-1.0); %Eosinophils 1.3 % (0.0-10.0); %Lymphocytes 11.4 % (21.0-51.0); %Neutrophils 76.3 % (42.0-75.0); Hematocrit 37.8 % (36.0-47.0); Hemoglobin 12.5 g/dL (12.0-16.0); Mean Corpuscular HGB CONC 33.1 g/dL (32.0-36.0); Mean Corpuscular Hemoglobin 30.8 pg (27.0-31.0); Mean Corpuscular Volume 93.1 fL (78.0-98.0); Mean Platelet Volume 10.1 fL (7.4-10.4); Platelet Count 288 10x3/uL (130-400); RBC Distribution Width 13.2 % (11.5-14.5); Red Blood Cell (RBC) Count 4.06 mill/uL (4.20-5.40)
[2024-05-17 11:31] LABS: INR-International Normal Ratio 1.5; PTT 36.9 sec (22.9-36.1); Prothrombin Time 18.5 sec (12.0-14.7)
[2024-05-17 11:49] LABS: ALT (SGPT) 11 U/L (8-55); AST (SGOT) 22 U/L (5-34); Albumin 3.4 g/dL (3.4-4.8); Alkaline Phosphatase 70 U/L (40-110); Anion Gap 14 mmol/L (10-20); BUN (Urea Nitrogen) 21 mg/dL (9.8-20.1); Bilirubin, Total 0.3 mg/dL (0.2-1.2); Calc. Creatinine Clearance 0 mL/min (70-130); Calcium 9.5 mg/dL (7.8-10.44); Carbon Dioxide 22 mmol/L (23-31); Chloride 104 mmol/L (98-107); Estimated GFR 42; Glucose 128 mg/dL (83-110); Potassium 4.5 mmol/L (3.5-5.1); Protein, Total 8.4 g/dL (5.8-8.1); Sodium 135 mmol/L (136-145)
[2024-05-17 13:41] LABS: Bacteria/HPF None Seen HPF (None Seen); Bilirubin Negative (Negative); Blood, Urine Negative (Negative); CAUTI Indications for Culture Immunosuppressed; Clarity Clear (Clear); Glucose, Urine (Dipstick) Greater than 1000 mg/dL (Negative); Ketone, Urine Negative (Negative); Leukocyte Negative Leu/uL (Negative); Nitrite Negative (Negative); Protein, Urine (Dipstick) Negative (Neg-Trace); RBC/HPF 0-3 HPF (0-3); Squamous Epithelial 0-3 HPF (0-3); Urobilinogen Normal mg/dL (Less than 2); WBC/HPF 0-3 HPF (0-3)
[2024-05-17 13:44] LABS: Urine Culture Reflex No No; Urine Culture Reflex Yes Yes
== END 2024-05-17 16:15 | disposition home or self-care (01) ==
LOC: ERS 10:09
DX: J15.9 Unspecified bacterial pneumonia (principal); J44.1 Chronic obstructive pulmonary disease with (acute) exacerbation; I48.91 Unspecified atrial fibrillation; I10 Essential (primary) hypertension; Z79.01 Long term (current) use of anticoagulants
CPT/HCPCS: 71045; 71275; 80053; 81001; 83880; 84484; 85025; 85610; 85730; 87086; 93005; 94640; J1100; 96374; J7620; Q9967